=== PATIENT | female | born 1945 | race Caucasian/White ===

== ENCOUNTER → 2018-05-04 15:34 | Outpatient (REF) | payer MEDICARE, BC, SELFPAY ==
[2018-05-07 14:04] LABS: Lyme Ab w Rflx to Lyme Confirm Negative
== END ==
LOC: NCHCN 15:34
PROVIDERS: PCP Internal Medicine; Visit Provider Internal Medicine
DX: R53.81 Other malaise (principal)
CPT/HCPCS: 86618

== ENCOUNTER 2018-05-05 10:10 | Emergency (ER) | payer MEDICARE, BC, SELFPAY ==
[2018-05-05] VITALS (33 sets, daily range): BP systolic 117–159; BP diastolic 49–132; PULSE 64–147; RESP 9–23; TEMP 36.6; O2SAT 95–100
--- NOTE | 2018-05-05 10:26 | DI.RPTCT_ITS ---
SYMPTOM/DIAGNOSIS: CHEST PAIN, SVT, SOB PE CHEST CT: CT angiography was performed with multi slice acquisition and multi planar and 3D reconstruction. CT scan of the chest was performed according to the pulmonary embolus protocol. Comparison is made with chest xray of 05/05/18. There is no evidence of a pulmonary embolus. The thoracic aorta is intact. No evidence of dissection or aneurysm. Heart size is within normal limits. No significant pericardial effusion is seen. No findings to suggest right ventricular dysfunction are present. No significant mediastinal, hilar or axillary adenopathy is present. No pleural effusion or pneumothorax is identified. Dependent atelectatic changes are seen in the lungs. No focal consolidating infiltrates are seen. The tracheobronchial tree is unremarkable. The bones are intact. No acute findings are seen in the upper abdomen. IMPRESSION: No acute abnormality. No findings of a pulmonary embolus, thoracic aortic dissection or aneurysm. PA AND LATERAL CHEST: No priors. The heart is normal in size. The lungs are clear. The mediastinal structures and pleura appear intact. CONCLUSION: Normal chest.
[2018-05-05] MEDS: Normal Saline 1,000 ML 1000 ML IV (10:30)
--- NOTE | 2018-05-05 10:39 | ED.GENADUL ---
Disposition Clinical Impression: Tachycardia Disposition: HOME Condition: Good Instructions: Supraventricular Tachycardia (ED) Additional Instructions: Please follow-up with your network security engineer in your family doctor soon as possible for reassessment. Please drink 8-10 cups of water per day. If you notice any worsening of your symptoms, or any new symptoms such as vomiting, diarrhea, fever, chills, shortness of breath, chest pain, numbness, weakness, or fainting , please return immediately to the emergency department for reevaluation. Please follow up with your primary care provider as soon as possible for reassessment and reevaluation. As always, it was a pleasure participating in your medical care today. Referrals: Gregory Bowie MD [Primary Care Provider] - Medical Decision Making - Lab Data Laboratory Tests 05/05/18 05/05/18 10:25 10:25 Sodium Cancelled Potassium Cancelled Chloride Cancelled Carbon Dioxide Cancelled Anion Gap Cancelled BUN Cancelled Creatinine Cancelled Estimated GFR/1.73 m2 Cancelled Glucose Cancelled Calcium Cancelled Total Bilirubin Cancelled AST Cancelled ALT Cancelled Alkaline Phosphatase Cancelled Total Protein Cancelled Albumin Cancelled Free T4 Cancelled - Medical Decision Making This is a pleasant 72-year-old female who presents for evaluation of chest pain and palpitations. Began at 5 AM, and has continued until about 9:30 AM roughly 30-45 minutes prior to arrival. Chest pain resolved at that time but the palpitations continued. Patient denies any history of cardiac disease or significant arrhythmia. She does not take any cardiac medication. Here in the emergency department the patient appeared stable, demonstrated a normal blood pressure but was notably tachycardic in the high 140s-150s. EKG shows evidence of notable tachycardia, slightly difficult to differentiate between a flutter and SVT. Valsalva was performed twice on the patient with no significant improvement, however not long after this the patient spontaneously returned to normal sinus rhythm per EKG, with no cardiac medication being given. Will hold on the Cardizem for the time being. We will evaluate for any electrolyte abnormality, order a d-dimer for evaluation of PE as the causative agent of her symptoms, rehydrate and reassess. EK:15 AM Rate 147, MD uncertain, QTc 42, QRS 110, atrial flutter versus SVT. No significant ST elevations or depressions. No significant Q waves. EKG 10:39 AM Rate 84, sinus rhythm, intervals normal, no ST elevations or depressions no T-wave inversions questionable Q-wave in lead III with associated T-wave inversion. No other abnormalities. 1:[address] angiogram has resulted and shows no evidence of pulmonary embolism, or any acute pathology. No evidence of pneumonia or other issue. Patient's laboratory workup has returned benign. Troponin, EKGs are normal. No significant electrolyte abnormalities. The patient has maintained an observation period here in the emergency department of nearly 4 hours, and continues to show no evidence of SVT or atrial flutter. She has received no medications, she has not received any of the Cardizem that was ordered secondary to a spontaneous return to normal rhythm. We are still pending a second troponin repeat EKG, however I do feel that the patient is stable for discharge home with close follow-up with cardiology. We will orchestrate a cardiology follow-up. We had a long discussion regarding red flags which to return including return of her symptoms and the patient understands. EKG 1340PM Rate 68, intervals normal, no ST elevations or depressions. No T-wave inversions except for in lead III. No signs of significant dysrhythmia, atrial fibrillation or a flutter. History of Present Illness - General Chief complaint: Chest Pain Stated complaint: CHEST PAIN Time Seen by Provider: 05/05/18 10:24 - History of Present Illness Initial comments: This is a 72-year-old female with past medical history of diabetes, high cholesterol, tobacco use which she stopped in 1978, as well as chronic UTIs for which she takes regular nitrofurantoin for the last year. She presents today complaining of palpitations that started at 5 AM when she awoke. She felt an irregular sensation in her chest, as well as some associated chest tightness, shortness of breath, and left arm pain. There were no aggravating components or relieving components. Patient's symptoms were continuous until 9:30 PM prior to arrival at which point palpitations maintain however the chest pain shortness of breath resolved. Currently the patient denies any chest, arm, or neck pain. She does admit to mild palpitations, and some shortness of breath. She denies having symptoms like this recently but does admit to a history of having some palpitations in the past. She does not regularly see a network security engineer. She does have cerebral artery disease. Patient's past surgical history is positive for cholecystectomy and appendectomy. She denies any IV or illicit drug use. She is denies any pertinent family history. She has no other complaints at this time. - Related Data Aspirin/Calcium Carbonate/Mag [Aspirin Buffered 325 mg Tab] 325 mg PO DAILY 07/10/14 Simvastatin 40 mg PO QPM 10/18/14 Nitrofurantoin Monohyd/M-Cryst [Macrobid 100 mg Capsule] 100 mg PO BID #14 capsule 12/11/15 Omeprazole [PriLOSEC Otc] 20 mg PO DAILY 08/13/16 Allergies Allergy/AdvReac Type Severity Reaction Status Date / Time Sulfa (Sulfonamide Allergy Severe Cardiac Verified 05/05/18 10:33 Antibiotics) Dysrythmia Schafer Allergy Intermediate throat itch Verified 05/05/18 10:33 peach Allergy Intermediate throat and Verified 05/05/18 10:33 eye itch amoxicillin trihydrate Allergy Mild Skin Rash Verified 05/05/18 10:33 [From Augmentin] clopidogrel bisulfate Allergy Mild Hives Verified 05/05/18 10:33 [From Plavix] erythromycin base Allergy Mild Skin Rash Verified 05/05/18 10:33 [Erythromycin Base] potassium clavulanate Allergy Mild Skin Rash Verified 05/05/18 10:33 [From Augmentin] nectarines Allergy Mild throat and Uncoded 05/05/18 10:33 eye itch nuts Allergy Mild throat and Uncoded 05/05/18 10:33 eye itch Review of Systems Other: 10 point review of systems was performed, pertinent positives and negatives are noted in the history of present illness. Past Medical History - Past Medical History Medical history: CAD, diabetes, hyperlipidemia Surgical history: appendectomy, cholecystectomy, other (tonsillectomy, lithotripsy) General Exam - Other Other exam information: 1.Const: Well-nourished, Well-developed, appearing stated age 2.Eyes: PERRL, no conjunctival injection, and symmetrical lids. 3.ENT: Atraumatic external nose and ears. Mildly dry MM. Neck: Symmetric, trachea midline, No thyromegaly. 4.CVS: +S1/S2, No murmurs or gallops. Peripheral pulses 2+ and equal in all extremities. Brisk capillary refill in all extremities. No reproducible chest pain or tenderness. 5.RESP: Unlabored respiratory effort. Clear to auscultation bilaterally. No wheezes rales or rhonchi 6.GI: Soft, Nontender/Nondistended, No hepatosplenomegaly. No guarding or rebound. 7.MSK: Normocephalic/Atraumatic, Extremities w/o deformity or ttp No cyanosis or clubbing, Normal movement of all extremities 8.Skin: Warm, Dry. No rashes or lesions. 9.Neuro: mental health case manager II-XII grossly intact. Sensation grossly intact, no focal neurologic deficits. 10.Psych: (AAO) x3. Appropriate mood and affect Course Vital Signs - 24 hr 05/05/18 10:15 Temperature 36.6 C Pulse 145 H Respiratory 17 Rate Blood Pressure 159/93 Pulse Oximetry 98
[2018-05-05 10:40] LABS: Abs Immature Grans 0.01 k/cumm (0.0-0.09); Absolute Basophil Count 0.02 k/cumm (0.0-0.2); Absolute Lymphocyte Count 2.24 k/cumm (1.2-3.4); Absolute Monocyte Count 0.53 k/cumm (0.11-0.7); Absolute Neutrophil Count 5.37 k/cumm (1.2-6.7); Basophils % 0.2; Eosinophils % 1.2; HCT 47.8 % (36.0-46.0); HGB 16.9 g/dL (12.0-15.5); Immature Grans % 0.1; Lymphocytes % 27.1; Mean Corp. HGB Concentration 35.4 g/dL (32.0-36.0); Mean Corpuscular Hemoglobin 31.5 pg (27.0-33.0); Mean Platelet Volume 9.7 fL (8.0-11.0); Monocytes % 6.4; Platelet Count 201 x1000/uL (130-400); RBC 5.37 m/cumm (4.00-5.20); RBC Distribution Width 12.9 % (11.7-14.6); White Blood Cell Count 8.27 k/cumm (4.4-10.8)
--- NOTE | 2018-05-05 10:45 | ED.GENADUL_ITS ---
Disposition Clinical Impression: Tachycardia Disposition: HOME Condition: Good Instructions: Supraventricular Tachycardia (ED) Additional Instructions: Please follow-up with your barrel tester in your family doctor soon as possible for reassessment. Please drink 8-10 cups of water per day. If you notice any worsening of your symptoms, or any new symptoms such as vomiting, diarrhea, fever, chills, shortness of breath, chest pain, numbness, weakness, or fainting , please return immediately to the emergency department for reevaluation. Please follow up with your primary care provider as soon as possible for reassessment and reevaluation. As always, it was a pleasure participating in your medical care today. Referrals: Gregory Bowie MD [Primary Care Provider] - Medical Decision Making - Lab Data Laboratory Tests 05/05/18 05/05/18 10:25 10:25 Sodium Cancelled Potassium Cancelled Chloride Cancelled Carbon Dioxide Cancelled Anion Gap Cancelled BUN Cancelled Creatinine Cancelled Estimated GFR/1.73 m2 Cancelled Glucose Cancelled Calcium Cancelled Total Bilirubin Cancelled AST Cancelled ALT Cancelled Alkaline Phosphatase Cancelled Total Protein Cancelled Albumin Cancelled Free T4 Cancelled - Medical Decision Making This is a pleasant 72-year-old female who presents for evaluation of chest pain and palpitations. Began at 5 AM, and has continued until about 9:30 AM roughly 30-45 minutes prior to arrival. Chest pain resolved at that time but the palpitations continued. Patient denies any history of cardiac disease or significant arrhythmia. She does not take any cardiac medication. Here in the emergency department the patient appeared stable, demonstrated a normal blood pressure but was notably tachycardic in the high 140s-150s. EKG shows evidence of notable tachycardia, slightly difficult to differentiate between a flutter and SVT. Valsalva was performed twice on the patient with no significant improvement, however not long after this the patient spontaneously returned to normal sinus rhythm per EKG, with no cardiac medication being given. Will hold on the Cardizem for the time being. We will evaluate for any electrolyte abnormality, order a d-dimer for evaluation of PE as the causative agent of her symptoms, rehydrate and reassess. EK:15 AM Rate 147, PA uncertain, QTc 42, QRS 110, atrial flutter versus SVT. No significant ST elevations or depressions. No significant Q waves. EKG 10:39 AM Rate 84, sinus rhythm, intervals normal, no ST elevations or depressions no T- wave inversions questionable Q-wave in lead III with associated T-wave inversion. No other abnormalities. 1:[address] angiogram has resulted and shows no evidence of pulmonary embolism, or any acute pathology. No evidence of pneumonia or other issue. Patient's laboratory workup has returned benign. Troponin, EKGs are normal. No significant electrolyte abnormalities. The patient has maintained an observation period here in the emergency department of nearly 4 hours, and continues to show no evidence of SVT or atrial flutter. She has received no medications, she has not received any of the Cardizem that was ordered secondary to a spontaneous return to normal rhythm. We are still pending a second troponin repeat EKG, however I do feel that the patient is stable for discharge home with close follow-up with cardiology. We will orchestrate a cardiology follow-up. We had a long discussion regarding red flags which to return including return of her symptoms and the patient understands. EKG 1340PM Rate 68, intervals normal, no ST elevations or depressions. No T-wave inversions except for in lead III. No signs of significant dysrhythmia, atrial fibrillation or a flutter. History of Present Illness - General Chief complaint: Chest Pain Stated complaint: CHEST PAIN Time Seen by Provider: 05/05/18 10:24 - History of Present Illness Initial comments: This is a 72-year-old female with past medical history of diabetes, high cholesterol, tobacco use which she stopped in 1978, as well as chronic UTIs for which she takes regular nitrofurantoin for the last year. She presents today complaining of palpitations that started at 5 AM when she awoke. She felt an irregular sensation in her chest, as well as some associated chest tightness, shortness of breath, and left arm pain. There were no aggravating components or relieving components. Patient's symptoms were continuous until 9:30 PM prior to arrival at which point palpitations maintain however the chest pain shortness of breath resolved. Currently the patient denies any chest, arm, or neck pain. She does admit to mild palpitations, and some shortness of breath. She denies having symptoms like this recently but does admit to a history of having some palpitations in the past. She does not regularly see a barrel tester. She does have cerebral artery disease. Patient' s past surgical history is positive for cholecystectomy and appendectomy. She denies any IV or illicit drug use. She is denies any pertinent family history. She has no other complaints at this time. - Related Data Aspirin/Calcium Carbonate/Mag [Aspirin Buffered 325 mg Tab] 325 mg PO DAILY Simvastatin 40 mg PO QPM 10/18/14 Nitrofurantoin Monohyd/M-Cryst [Macrobid 100 mg Capsule] 100 mg PO BID #14 capsule 12/11/15 Omeprazole [PriLOSEC Otc] 20 mg PO DAILY 08/13/16 Allergies Allergy/AdvReac Type Severity Reaction Status Date / Time Sulfa (Sulfonamide Allergy Severe Cardiac Verified 05/05/18 10:33 Antibiotics) Dysrythmia Schafer Allergy Intermediate throat itch Verified 05/05/18 10:33 peach Allergy Intermediate throat and Verified 05/05/18 10:33 eye itch amoxicillin trihydrate Allergy Mild Skin Rash Verified 05/05/18 10:33 [From Augmentin] clopidogrel bisulfate Allergy Mild Hives Verified 05/05/18 10:33 [From Plavix] erythromycin base Allergy Mild Skin Rash Verified 05/05/18 10:33 [Erythromycin Base] potassium clavulanate Allergy Mild Skin Rash Verified 05/05/18 10:33 [From Augmentin] nectarines Allergy Mild throat and Uncoded 05/05/18 10:33 eye itch nuts Allergy Mild throat and Uncoded 05/05/18 10:33 eye itch Review of Systems Other: 10 point review of systems was performed, pertinent positives and negatives are noted in the history of present illness. Past Medical History - Past Medical History Medical history: CAD, diabetes, hyperlipidemia Surgical history: appendectomy, cholecystectomy, other (tonsillectomy, lithotripsy) General Exam - Other Other exam information: 1.Const: Well-nourished, Well-developed, appearing stated age 2.Eyes: PERRL, no conjunctival injection, and symmetrical lids. 3.ENT: Atraumatic external nose and ears. Mildly dry MM. Neck: Symmetric, trachea midline, No thyromegaly. 4.CVS: +S1/S2, No murmurs or gallops. Peripheral pulses 2+ and equal in all extremities. Brisk capillary refill in all extremities. No reproducible chest pain or tenderness. 5.RESP: Unlabored respiratory effort. Clear to auscultation bilaterally. No wheezes rales or rhonchi 6.GI: Soft, Nontender/Nondistended, No hepatosplenomegaly. No guarding or rebound. 7.MSK: Normocephalic/Atraumatic, Extremities w/o deformity or ttp No cyanosis or clubbing, Normal movement of all extremities 8.Skin: Warm, Dry. No rashes or lesions. 9.Neuro: nurse anesthesia program director II-XII grossly intact. Sensation grossly intact, no focal neurologic deficits. 10.Psych: (AAO) x3. Appropriate mood and affect Course Vital Signs - 24 hr 05/05/18 10:15 Temperature 36.6 C Pulse 145 H Respiratory 17 Rate Blood Pressure 159/93 Pulse Oximetry 98
[2018-05-05 11:04] LABS: ALT 33 U/L (12-78); AST 21 U/L (15-37); Albumin 4.1 g/dL (3.4-5.0); Alkaline Phosphatase 111 U/L (46-116); Anion Gap 6.9 mmol/L (3-11); BUN 15 mg/dL (7-18); Bilirubin, Total 0.7 mg/dL (0.2-1.0); CO2 26.1 mmol/L (21.0-32.0); CREATININE 0.81 mg/dL (0.55-1.02); Calcium 9.7 mg/dL (8.5-10.1); Chloride 107 mmol/L (98-107); FREE T4 1.02 ng/dL (0.76-1.46); Glucose 142 mg/dL (70-100); Magnesium 1.8 mg/dL (1.8-2.4); Potassium 3.9 mmol/L (3.5-5.1); Sodium 140 mmol/L (136-145); TSH 1.21 uIU/mL (0.358-3.74); Total Protein 7.1 g/dL (6.4-8.2); Troponin I < 0.02 ng/mL (0.00-0.06)
[2018-05-05 11:08] LABS: Bilirubin Negative (Negative); Blood Negative (Negative); Clarity Clear; Glucose Negative (Negative); Ketones Negative (Negative); Leukocyte Esterase Negative (Negative); Nitrite Negative (Negative); Urobilinogen 0.2 EU/dL (Up TO 0.2); pH 5.5 (5-8)
[2018-05-05 11:09] LABS: D-Dimer 519 ng/mlFEU (<500)
--- NOTE | 2018-05-05 11:47 | DI.VRAD_ITS ---
EXAM: XR Chest, 2 Views CLINICAL HISTORY: 72 years old, female; Signs and symptoms; Other: Chest pain TECHNIQUE: Frontal and lateral views of the chest. COMPARISON: CR - CHEST 2 VIEWS PA,LAT 06/30/2011 1:28 PM FINDINGS: The lung fountain are clear bilaterally. No focal pulmonary consolidation is present. The cardiac silhouette is within normal limits. The costophrenic angles are sharp. The bony structures appear unremarkable. IMPRESSION: No evidence of acute cardiopulmonary disease. Dictated and Authenticated by: Stephane Ngo MD. Ordering:NIK TINEO MD
[2018-05-05] MEDS: Omnipaque 350 MG/ML 100 ML BTL IJ (11:51)
--- NOTE | 2018-05-05 11:55 | DI.VRAD_ITS ---
EXAM: CT Angiography Chest With Intravenous Contrast CLINICAL HISTORY: 72 years old, female; Signs and symptoms; Other: Svt, SOB, cp TECHNIQUE: Axial computed tomographic angiography images of the chest with intravenous contrast using pulmonary embolism protocol. All CT scans at this facility use at least one of these dose optimization techniques: automated exposure control; mA and/or kV adjustment per patient size (includes targeted exams where dose is matched to clinical indication); or iterative reconstruction. MIP reconstructed images were created and reviewed. Coronal and sagittal reformatted images were created and reviewed. COMPARISON: CR - CHEST 2 VIEWS PA,LAT 05/05/2018 11:02 AM FINDINGS: No evidence of PE. Mild diffuse interstitial lung scarring and basilar atelectasis. No other significant consolidations. No pleural effusion. No pneumothorax. No adenopathy. Unremarkable upper abdomen. No acute mediastinal or aortic abnormality. IMPRESSION: No specific etiology identified for the patient's symptoms. Dictated and Authenticated by: Stephane Ngo MD. Ordering:NIK TINEO MD
[2018-05-05 12:19] LABS: Troponin I < 0.02 ng/mL (0.00-0.06)
[2018-05-05 13:44] LABS: Troponin I < 0.02 ng/mL (0.00-0.06)
--- NOTE | 2018-05-07 10:00 | PDOC.ERCMPRO ---
Care Management Progress Note 05/07-Dr. Clinton requested assistance with a Cardiology f/u within two weeks for SVT vs Aflutter. referral faxed to cardiology this am.
== END 2018-05-05 14:30 | disposition home or self-care (01) ==
PROVIDERS: Emergency Provider Student in an Organized Health Care Education/Training Program; PCP Internal Medicine
DX: R00.0 Tachycardia, unspecified (principal); R79.1 Abnormal coagulation profile; E11.9 Type 2 diabetes mellitus without complications
CPT/HCPCS: 71046; 71275; 93005; 96360; 99285 ×2; 36415; 80053; 81003; 83735; 84439; 84443; 84484; 85025; 85379; 93010; J3490

== ENCOUNTER 2019-08-05 12:41 | Outpatient (REF) | payer MEDICARE, BC, SELFPAY ==
[2019-08-05 22:15] LABS: Calculated LDL 95 mg/dL; Cholesterol 185 mg/dL (<200); HDL Cholesterol 51 mg/dL (40-60); Triglyceride 196 mg/dL (<150)
== END 2019-08-05 13:01 ==
LOC: NCHCN 12:41
PROVIDERS: PCP Internal Medicine; Visit Provider Internal Medicine
DX: E78.5 Hyperlipidemia, unspecified (principal)
CPT/HCPCS: 80061

== ENCOUNTER 2019-09-12 01:57 | Outpatient (CLI) | payer MEDICARE, BC, SELFPAY ==
--- NOTE | 2019-09-12 15:55 | DI.MAMMO_ITS ---
EXAM: MAMMO SCREENING CLINICAL HISTORY: SCREENING Z12.39 TECHNIQUE: Mammograms were interpreted according to the usual protocol including computer analysis w [employer] CAD system, tomosynthesis and C-view imaging. FINDINGS: The breasts are heterogeneously dense with numerous bilateral areas of nodularity and asymmetric dens ity, the appearance of the breasts limits interpretation. No dominant mass seen. Multiple benign du ctal calcifications seen bilaterally. No gross interval change in appearance in comparison with prio r studies including April 2017. IMPRESSION: No specific evidence of malignancy at this time. Routine screening examinations are suggested at year ly intervals in this age group and would be particularly recommended in this patient due to the heter ogeneous radiodensity of the breasts. Category 1. Breast density, category C. BI-RADS Cat 1 - Negative. Breast Density - Category C - Heterogeneously dense.
== END 2019-09-12 02:17 ==
PROVIDERS: PCP Internal Medicine; Visit Provider Internal Medicine
DX: Z12.31 Encounter for screening mammogram for malignant neoplasm of breast (principal); N60.81 Other benign mammary dysplasias of right breast; N60.82 Other benign mammary dysplasias of left breast
CPT/HCPCS: 77063; 77067

== ENCOUNTER 2020-03-29 13:17 | Observation (INO) | payer MEDICARE, BC, SELFPAY ==
[2020-03-29] VITALS (56 sets, daily range): BP systolic 93–180; BP diastolic 54–108; PULSE 65–149; RESP 9–29; TEMP 36.6–37.1; O2SAT 93–98
--- NOTE | 2020-03-29 13:15 | RT.EKG_ITS ---
APPROVED REPORT Exam: Resting ECG Patient Location: E HR:139 bpm ECG Measurements Heart Rate 139 AXIS ND 119 P 129 QRSd 80 QRS -31 QT 320 T 51 QTc 487 <Conclusion> tachycardia...rate> 99 Left axis deviation...QRS axis (-30,-90) aflutter
[2020-03-29 13:43] LABS: Abs Immature Grans 0.01 k/cumm (0.0-0.09); Absolute Basophil Count 0.02 k/cumm (0.0-0.2); Absolute Eosinophil Count 0.25 k/cumm (0.0-0.7); Absolute Lymphocyte Count 2.28 k/cumm (1.2-3.4); Absolute Monocyte Count 0.56 k/cumm (0.11-0.7); Absolute Neutrophil Count 4.89 k/cumm (1.2-6.7); Basophils % 0.2; Eosinophils % 3.1; HCT 44.9 % (36.0-46.0); HGB 15.8 g/dL (12.0-15.5); Immature Grans % 0.1 %; Lymphocytes % 28.5; Mean Corp. HGB Concentration 35.2 g/dL (32.0-36.0); Mean Corpuscular Hemoglobin 30.8 pg (27.0-33.0); Mean Corpuscular Volume 87.5 fL (80-95); Mean Platelet Volume 9.5 fL (8.0-11.0); Neutrophils % 61.1; Platelet Count 225 x1000/uL (130-400); RBC 5.13 m/cumm (4.00-5.20); RBC Distribution Width 13.1 % (11.7-14.6); White Blood Cell Count 8.01 k/cumm (4.4-10.8)
[2020-03-29] MEDS: dilTIAZem 25 MG/5 ML VIAL 10 MG IVP ×2 (13:46→14:15)
[2020-03-29] MEDS: Normal Saline 1,000 ML 1000 ML IV (13:50)
--- NOTE | 2020-03-29 13:50 | W.ED.GENAD ---
Discharge Plan Disposition Patient Disposition: OTHER Condition: Good Discharge Details Chief Complaint: Palpitatns Clinical Impression: Atrial fibrillation with RVR Admit Date/Time: 03/29/20 15:04 Admit Provider: Karina Bragg Attending Provider: Karina Bragg Primary Care Provider: Gregory Bowie ED Provider: Marcel Sandhu Hospital Course Hospital Course: Ms Britt is a 74 year old female with PMHx of paroxysmal Afib, on prn propranolol but not on anticoagulation, h/o incidentally found left middle cerebral artery calcifications without ever having had TIAs or CVA, on full dose aspirin daily, as well as dyslipidemia, GERD, and recurrent UTIs on chronic nitrofurantoin therapy, who usually treats her monthly bouts of Afib with valsalva maneuver, who had an episode of atrial fibrillation that started at around noon today while working outside, loading up her truck. She denies feeling dizzy, having chest pain, or nausea. She felt a brief pain radiating down both her hands as well as brief shortness of breath once she got to the ED. She attempted her valsalva maneuver, unsuccessfully, then took her propranolol, which also did not slow her down, so she drove herself to the ED, where her heart rates were found to be in 140s. She received 2 pushes of IV diltiazem and was initiated on diltiazem gtt. When she was having her routine screening COVID-19 swab done, she converted to NSR and feels well. She has an appointment with her elevator runner, Dr Godfrey at [facility], tomorrow and is interested in following up with him. She would like to go home. She is hemodynamically stable. She does not have cell phone service at home, so she cannot have a 30 day cardiac event recorder, but she will be sent out with holter monitor today, assuming her repeat troponin is negative. Ms Britt is not sure when her echocardiogram was, but thinks she has had one in the past. Given her alcohol intake of 3 glasses of wine at night, an updated echo is recommended. Additionally, a sleep study could also be pursued as outpatient. She will talk to Dr Godfrey about anticoagulation. She is mediclaly stable for discharge home today. Discharge Data Discharge Date/Time-TO BE ENTERED AT DEPARTURE: 03/29/20 15:39 Medical Decision Making <MERRY Timmons - Last Filed: 03/29/20 15:26> 74-year-old female with a history of hyperlipidemia, GERD, palpitations, presents to the ER reporting palpitations and a fast heart rate that began roughly 1 hour ago when working outside in her yard. She denies any chest pain or shortness of breath. She reports this does feel rather similar to her previous evaluation. I was able to quickly review her previous record, it appears as though she was in A. fib-flutter, they attempted a Valsalva move with no improvement, and then prior to Cardizem being given her rhythm spontaneously broke. Subsequently since that time she has established cardiology care and does have propranolol as needed that she does not regularly take, did take 1 dose today. She denies any pain or swelling in her legs. No history of DVT or PE. IV access established, will give 1 L IV fluid, and attempt Valsalva maneuver. In the meantime will initiate cardiac work-up. Given low suspicion for PE, will not order d-dimer. I did discuss the case with Dr. Mancia Valsalva maneuver performed twice without change of therapy. An IV Cardizem given. Heart rate went from the 140s down into the 120s and 130s. A second dose of IV Cardizem, 10 mg given. Heart rate decreased initially into the 90s, remained in A. fib. Subsequently climbed back into the 120s. Initiated a Cardizem drip, starting at 5. Heart rate is now in the 110s Initial work-up here in the ER reveals a WBC of 8.01 hemoglobin 15.8 hematocrit 44.9 platelet count 225. Electrolytes unremarkable. Creatinine 0.94 with a GFR of 58.21. Glucose of 200. Calcium 10.2. TSH 1.28. Troponin less than 0.05. Chest x-ray clear. Upon reevaluation heart rate of 108. Patient reports significant improvement of her symptoms. While I was in the room, her rate did go back up to 125. Patient appears well, hemodynamically stable at this point. Will contact our hospitalist team for admission to the ICU with Cardizem drip, diagnosis A. fib with RVR. Repeat EKG was performed at 1429, please see Dr. Mancia's official report. Atrial fibrillation, ventricular of 110. No STEMI. Medical Records Medical records reviewed: Yes I reviewed the patient's medical records. Imaging Data Radiologic Study: Attestation: I personally reviewed and interpreted this imaging study as follows: Imaging: X-Ray Radiologist's impression: Chest x-ray negative Lab Data Lab results reviewed: Yes I reviewed the patient's lab results. Lab results narrative: Laboratory Tests Range/Units 03/29/20 03/29/20 03/29/20 13:28 13:28 13:28 WBC (4.4-10.8) k/cumm 8.01 RBC (4.00-5.20) m/cumm 5.13 Hgb (12.0-15.5) g/dL 15.8 H Hct (36.0-46.0) % 44.9 MCV (80-95) fL 87.5 MCH (27.0-33.0) pg 30.8 MCHC (32.0-36.0) g/dL 35.2 RDW (11.7-14.6) % 13.1 Plt Count (130-400) x1000/uL 225 MPV (8.0-11.0) fL 9.5 Immature Gran % % 0.1 Neutrophils % 61.1 Lymphocytes % 28.5 Monocytes % 7.0 Eosinophils % 3.1 Basophils % 0.2 Absolute Neutrophils (1.2-6.7) k/cumm 4.89 Absolute Lymphocytes (1.2-3.4) k/cumm 2.28 Absolute Monocytes (0.11-0.7) k/cumm 0.56 Absolute Eosinophils (0.0-0.7) k/cumm 0.25 Absolute Basophils (0.0-0.2) k/cumm 0.02 PT (9.3-11.0) sec 9.9 INR (0.9-1.1) 1.0 APTT (21.0-31.4) sec 22.7 Sodium (136-145) mmol/L 140 Potassium (3.5-5.1) mmol/L 3.8 Chloride (98-107) mmol/L 104 Carbon Dioxide (21.0-32.0) mmol/L 25.0 Anion Gap (3-11) mmol/L 11.0 BUN (7-18) mg/dL 23 H Creatinine (0.55-1.02) mg/dL 0.94 Estimated GFR/1.73 m2 (mL/min/1.73m2) 58.21 Glucose (74-106) mg/dL 200 H Calcium (8.5-10.1) mg/dL 10.2 H Magnesium (1.8-2.4) mg/dL 2.0 Total Bilirubin (0.2-1.0) mg/dL 0.8 AST (15-37) U/L 23 ALT (14-59) U/L 31 Alkaline Phosphatase (46-116) U/L 114 Troponin I (<0.06) ng/mL < 0.05 Total Protein (6.4-8.2) g/dL 7.3 Albumin (3.4-5.0) g/dL 4.0 TSH (0.36-3.74) uIU/mL 1.28 ECG Data Attestation: I personally reviewed and interpreted this ECG (s) as follows: Prior ECG tracings: available for review Interpretation: EKG reviewed and interpreted with Dr. Mancia. Please see his official report. Sinus tachycardia, ventricular rate of 139. No STEMI. <Kadeem Mancia MD - Last Filed: 04/06/20 17:18> Patient seen, examined, and discussed with MERRY Sandhu. ECG interpreted by me: Concern for a flutter with RVR on initial ECG diltiazem bolus x2 administered and heart rate improved, repeat ECG revealed atrial fibrillation, diltiazem infusion initiated. I agree with treatment plan as discussed/documented. HPI <MERRY Timmons - Last Filed: 03/29/20 15:26> General Mode of arrival: ambulatory. Date/Time Provider Initiated Documentation: 03/29/20 13:17. Limitations to Documentation: no limitations. Information obtained by: patient. HPI Narrative: This is a 74-year-old female with past medical history that includes hyperlipidemia, GERD, palpitations, presents to the ER today reporting that she was working outside in her yard approximately 1 hour ago when she developed palpitations and a rapid heart rate. She denies any chest pain or shortness of breath. She reports that this happened 1 time prior, she was seen in the ER, subsequently discharged after her rhythm went back to normal. She has developed cardiology care in [place], has propanolol as needed, did take a single dose of that today without relief of her symptoms. She denies recent illness or trauma. She denies headache, neck pain, back pain, abdominal pain, nausea, vomiting pain or swelling in her legs, numbness, tingling, weakness in her extremities. Related Data Home Medications Medication Instructions Recorded Confirmed aspirin,buffd-calcium carb-mag 325 mg PO DAILY 07/10/14 03/29/20 nitrofurantoin monohyd/m-cryst 100 mg PO BID #14 capsule 12/11/15 03/29/20 [Macrobid] diltiazem HCl [Cardizem] 30 mg PO BID #60 tab 03/29/20 pravastatin 40 mg PO QHS #30 tab 03/29/20 Previous Rx's Medication Instructions Recorded nitrofurantoin monohyd/m-cryst 100 mg PO BID #14 capsule 12/11/15 [Macrobid] diltiazem HCl [Cardizem] 30 mg PO BID #60 tab 03/29/20 pravastatin 40 mg PO QHS #30 tab 03/29/20 Allergies Allergy/AdvReac Type Severity Reaction Status Date / Time Sulfa (Sulfonamide Allergy Severe Cardiac Verified 03/29/20 15:23 Antibiotics) Dysrythmia Schafer Allergy Intermediate throat itch Verified 03/29/20 15:23 peach Allergy Intermediate throat and Verified 03/29/20 15:23 eye itch amoxicillin trihydrate Allergy Mild Skin Rash Verified 03/29/20 15:23 [From Augmentin] clopidogrel bisulfate Allergy Mild Hives Verified 03/29/20 15:23 [From Plavix] erythromycin base Allergy Mild Skin Rash Verified 03/29/20 15:23 [Erythromycin Base] potassium clavulanate Allergy Mild Skin Rash Verified 03/29/20 15:23 [From Augmentin] nectarines Allergy Mild throat and Uncoded 03/29/20 15:23 eye itch nuts Allergy Mild throat and Uncoded 03/29/20 15:23 eye itch General Stated Complaint: Palpitatns DERIK: 3 Review of Systems <MERRY Timmons - Last Filed: 03/29/20 15:26> Constitutional Constitutional: Denies fatigue, Denies fever(s), Denies headache(s) and Denies weakness ENT Ears, Nose, Mouth, and Throat: Denies headache(s) and Denies neck pain Cardiovascular Cardiovascular: Denies chest pain, Reports palpitations and Denies dyspnea Respiratory Respiratory: Denies cough, Denies dyspnea and Denies wheezing Gastrointestinal Gastrointestinal: Denies abdominal pain, Denies nausea and Denies vomiting Musculoskeletal Musculoskeletal: Denies back pain, Denies neck pain, Denies numbness and Denies tingling Integumentary/Breasts Skin/Breast: Denies rash Neurologic Neurologic: Denies headache(s), Denies numbness, Denies tingling and Denies weakness Endocrine Endocrine: Denies fatigue and Reports palpitations Allergic/Immunologic Allergic/Immunologic: Denies wheezing PFSH <MERRY Timmons - Last Filed: 03/29/20 15:26> Medical History (Updated 03/29/20 @ 17:05 by Karina Bragg MD) Diet-controlled type 2 diabetes mellitus (Chronic) Dyslipidemia (Chronic) GERD (gastroesophageal reflux disease) (Chronic) Paroxysmal A-fib (Acute) Recurrent UTI (Acute) Sigmoid diverticulosis (Acute) Stenosis of left middle cerebral artery (Acute) incidentally found on imaging; no h/o CVA/TIA Surgical History Hx of colonoscopy (Chronic) x5; last one with sigmoid diverticulosis S/P appendectomy (Acute) S/P cholecystectomy (Acute) S/P tonsillectomy (Acute) Family History Paternal Aunt Colon cancer Maternal Uncle Colon cancer Social History Smoking/Tobacco Use Status: Former Tobacco Use Alcohol Intake: current Alcohol Intake frequency: 3 or more drinks per day Alcohol type: wine Counseling given: Yes Counseling provided: reduce to 2 or less/day Drug use: Never Substance use type: does not use Do you feel safe at home: Yes Do you feel safe in your relationship?: Yes Exam <MERRY Timmons - Last Filed: 03/29/20 15:26> Const General: cooperative, healthy appearing, comfortable and no acute distress Orientation: alert, awake and oriented x3 HENMT Head: normal to inspection, normocephalic and atraumatic Mouth: moist mucous membranes Throat: posterior oropharynx normal Eyes Conjunctivae: conjunctivae normal Sclera: sclerae normal Neck Neck: normal visual inspection, full ROM, trachea midline, supple and nontender Resp Effort & Inspection: normal respiratory effort and able to speak in complete sentences Auscultation: clear to auscultation bilaterally Cardio Rate: tachycardic Rhythm: abnormal rhythm irregularly irregular GI Inspection: normal to inspection Palpation: soft and nontender Back/Spine/Pelvis Back: No back tenderness Skin General skin exam: no rashes or lesions noted Neuro General: patient alert, patient awake, patient oriented x3, moves all extremities and no focal motor deficits Cranial Nerves: CN's II-XI intact bilaterally Cognition: normal cognition Speech: speech normal Motor: muscle tone normal throughout Sensory Exam: no sensory deficits noted Extrem General: normal to inspection, full ROM, capillary refill normal, no pedal edema, no calf tenderness and no calf tenderness bilaterally Psych Appearance: grossly normal Mental Status: mental status grossly normal Course <MERRY Timmons - Last Filed: 03/29/20 15:26> Vital Signs Vital signs: Vital Signs Temperature 36.6 C 03/29/20 13:22 Pulse 138 H 03/29/20 13:22 Respiratory Rate 21 03/29/20 13:22 Blood Pressure 180/89 H 03/29/20 13:22 Pulse Oximetry 97 03/29/20 13:22 Temperature 36.6 C 03/29/20 13:22 Temperature Source Temporal Artery Scan 03/29/20 13:22 Pulse 138 H 03/29/20 13:22 Respiratory Rate 21 03/29/20 13:22 Respiratory Effort Non-Labored 03/29/20 13:24 Blood Pressure 180/89 H 03/29/20 13:22 Blood Pressure Position Sitting 03/29/20 13:22 Pulse Oximetry 97 03/29/20 13:22 Oxygen Delivery Method Room Air 03/29/20 13:22 Oxygen Flow Rate 0 03/29/20 13:22 Pain Level 0 03/29/20 13:22 Lab/Test Results Lab/Test Results: Laboratory Tests Range/Units 03/29/20 13:28 WBC (4.4-10.8) k/cumm 8.01 RBC (4.00-5.20) m/cumm 5.13 Hgb (12.0-15.5) g/dL 15.8 H Hct (36.0-46.0) % 44.9 MCV (80-95) fL 87.5 MCH (27.0-33.0) pg 30.8 MCHC (32.0-36.0) g/dL 35.2 RDW (11.7-14.6) % 13.1 Plt Count (130-400) x1000/uL 225 MPV (8.0-11.0) fL 9.5 Immature Gran % % 0.1 Neutrophils % 61.1 Lymphocytes % 28.5 Monocytes % 7.0 Eosinophils % 3.1 Basophils % 0.2 Absolute Neutrophils (1.2-6.7) k/cumm 4.89 Absolute Lymphocytes (1.2-3.4) k/cumm 2.28 Absolute Monocytes (0.11-0.7) k/cumm 0.56 Absolute Eosinophils (0.0-0.7) k/cumm 0.25 Absolute Basophils (0.0-0.2) k/cumm 0.02 Critical Care Time <MERRY Timmons - Last Filed: 03/29/20 15:26> Critical Care Time Critical Care Time: Yes Total Critical Care Time: 45 Attestation: Upon my evaluation, this patient had a high probability of clinically significant, life-threatening deterioration due to their current medical conditions, which required my direct attention, intervention, and personal management. I have personally provided greater than 30 minutes of critical care time exclusive of the time spend on separately billable procedures. Time includes obtaining a history, examining the patient, pulse oximetry, review of laboratory data, radiology results, discussion with consultants, arranging urgent treatment with development of a management plan, evaluation of patient's response to treatment, and monitoring for potential decompensation. Interventions were performed as documented above.
[2020-03-29 13:56] LABS: PTT Activated 22.7 sec (21.0-31.4); Prothrombin Time 9.9 sec (9.3-11.0)
[2020-03-29 14:12] LABS: ALT 31 U/L (14-59); AST 23 U/L (15-37); Alkaline Phosphatase 114 U/L (46-116); BUN 23 mg/dL (7-18); Bilirubin, Total 0.8 mg/dL (0.2-1.0); CREATININE 0.94 mg/dL (0.55-1.02); Calcium 10.2 mg/dL (8.5-10.1); Chloride 104 mmol/L (98-107); Estimated GFR 58.21 (mL/min/1.73m2); Glucose 200 mg/dL (74-106); Potassium 3.8 mmol/L (3.5-5.1); Sodium 140 mmol/L (136-145); TSH 1.28 uIU/mL (0.36-3.74); Total Protein 7.3 g/dL (6.4-8.2)
[2020-03-29 14:13] LABS: Troponin I < 0.05 ng/mL (<0.06)
--- NOTE | 2020-03-29 14:15 | RT.EKG_ITS ---
APPROVED REPORT Exam: Resting ECG Patient Location: E HR:110 bpm ECG Measurements Heart Rate 110 AXIS MO [id number] P [id number] QRSd 82 QRS 33 QT 337 T 18 QTc 457 <Conclusion> Atrial fibrillation Abnormal Electrocardiogram
--- NOTE | 2020-03-29 14:32 | DI.RAD_ITS ---
EXAM: XR PORTABLE CHEST AP CLINICAL HISTORY: Palpitations TECHNIQUE: 2D digital imaging was performed. COMPARISON: CR CHEST 2 VIEWS PA,LAT from 05/05/2018 FINDINGS: MEDIASTINUM: Normal. HEART: Normal. PULMONARY VASCULATURE: Unremarkable. LUNGS: Unchanged left apical scarring. Increased lung markings in the right apex. No focal consolid ating infiltrate. PLEURAL SPACE: No pleural effusion or pneumothorax. BONE:Normal. OTHER FINDINGS:Normal. IMPRESSION: Increased lung markings in the right upper lobe. This may represent atelectasis, scarring or pneumon ia. Please correlate clinically. DATA REPOSITORY: RADIATION DOSE DELIVERED:
[2020-03-29] MEDS: dilTIAZem 125 MG in Normal Saline 100 ML IV (15:00)
--- NOTE | 2020-03-29 15:08 | DI.VRAD_ITS ---
PROCEDURE INFORMATION: Exam: XR Chest, 1 View Exam date and time: 03/29/2020 2:35 PM Age: 74 years old Clinical indication: Other: Palpitations TECHNIQUE: Imaging protocol: XR of the chest Views: 1 view. COMPARISON: CR CHEST 2 VIEWS PA,LAT 05/05/2018 11:02 AM FINDINGS: Lungs: Minimal interstitial lung scarring unchanged. No focal pulmonary consolidation. Pleural space: No pleural effusion. No pneumothorax. Heart/Mediastinum: No significant cardiomegaly. Bones/joints: Unremarkable. IMPRESSION: No definite evidence of acute cardiopulmonary disease. Dictated and Authenticated by: Stephane Ngo MD. Ordering:CAROL Rod MD
--- NOTE | 2020-03-29 16:42 | HPE_ITS ---
Date of service: 03/29/20 Time of Service: 16:42 Assessment and Plan Assessment and plan (1) Atrial fibrillation with RVR: Status: Acute Assessment and plan: Ms Britt has a hx of paroxysmal Afib, which she gets episodes of every month or so, but is usually able to control with valsalva maneuver. Today's episode was the worst so far, and the propranolol she had at home did not help. Diltiazem did help. Assuming that her 2nd troponin is negative, she can be discharged home with diltiazem. Timing of her follow up with her staking engineer is perfect - and Dr Godfrey and her can talk about her options of anticoagulation as well. She is being discharged home with a holter monitor today. Unfortunately, Ms Britt does not remember the timing of her echo. She may be due for an updated one. She does not know if she snores - sleep study could be considered as outpatient as well. For now, continue full dose aspirin as the patient is already taking. (2) Diet-controlled type 2 diabetes mellitus: Status: Chronic Assessment and plan: Patient states her last A1C was 6.7. Continue diet control at home. Decreasing EtOH intake would help. (3) Alcohol abuse: Status: Chronic Assessment and plan: The patient should reduce her alcohol intake. An updated echo as outpatient would give us some idea if alcohol has changed the architecture of her heart contributing to the bouts of Afib. (4) GERD (gastroesophageal reflux disease): Status: Chronic Assessment and plan: Patient is not on a PPI/H2 blockers and this is minimally symptomatic. (5) Dyslipidemia: Status: Chronic Assessment and plan: We will have to change simvastatin to pravastatin given the interaction with cardizem. (6) Discharge planning issues: Status: Acute Assessment and plan: This H&P is also acting as patient's discharge summary due to the short timeframe of patient's observation on the hospitalist service. History of Present Illness History of Present Illness Chief Complaint: Palpitations Narrative: Ms Britt is a 74 year old female with PMHx of paroxysmal Afib, on prn propranolol but not on anticoagulation, h/o incidentally found left middle cerebral artery calcifications without ever having had TIAs or CVA, on full dose aspirin daily, as well as dyslipidemia, GERD, and recurrent UTIs on chronic nitrofurantoin therapy, who usually treats her monthly bouts of Afib with valsalva maneuver, who had an episode of atrial fibrillation that started at a round noon today while working outside, loading up her truck. She denies feeling dizzy, having chest pain, or nausea. She felt a brief pain radiating down both her hands as well as brief shortness of breath once she got to the ED. She attempted her valsalva maneuver, unsuccessfully, then took her propranolol, which also did not slow her down, so she drove herself to the ED, where her heart rates were found to be in 140s. She received 2 pushes of IV diltiazem and was initiated on diltiazem gtt. When she was having her routine screening COVID- 19 swab done, she converted to NSR and feels well. She has an appointment with her staking engineer, Dr Godfrey at [facility], tomorrow and is interested in following up with him. She would like to go home. She is hemodynamically stable. She does not have cell phone service at home, so she cannot have a 30 day cardiac event recorder, but she will be sent out with holter monitor today, assuming her repeat troponin is negative. Ms Britt is not sure when her echocardiogram was, but thinks she has had one in the past. She will talk to Dr Godfrey about anticoagulation. Review of Systems All systems reviewed & are unremarkable except as noted in HPI and below PFSH Medical History Diet-controlled type 2 diabetes mellitus (Acute) Dyslipidemia (Acute) GERD (gastroesophageal reflux disease) (Chronic) Paroxysmal A-fib (Acute) Recurrent UTI (Acute) Sigmoid diverticulosis (Acute) Stenosis of left middle cerebral artery (Acute) incidentally found on imaging; no h/o CVA/TIA Surgical History Hx of colonoscopy (Chronic) x5; last one with sigmoid diverticulosis S/P appendectomy (Acute) S/P cholecystectomy (Acute) S/P tonsillectomy (Acute) Family History Paternal Aunt Colon cancer Maternal Uncle Colon cancer Social History Smoking/Tobacco Use Status: Former Tobacco Use Alcohol Intake: current Alcohol Intake frequency: 3 or more drinks per day Alcohol type: wine Counseling given: Yes Counseling provided: reduce to 2 or less/day Drug use: Never Substance use type: does not use Do you feel safe at home: Yes Do you feel safe in your relationship?: Yes Meds Home Medications and Allergies Home Medications Medication Instructions Recorded Confirmed Type aspirin,buffd-calcium carb-mag 325 mg PO DAILY 07/10/14 03/29/20 History simvastatin 40 mg PO QPM 10/18/14 03/29/20 History nitrofurantoin monohyd/m-cryst 100 mg PO BID #14 capsule 12/11/15 03/29/20 Rx [Macrobid] propranolol 10 mg PO DAILY PRN 03/29/20 03/29/20 History Allergies Allergy/AdvReac Type Severity Reaction Status Date / Time Sulfa (Sulfonamide Allergy Severe Cardiac Verified 03/29/20 15:23 Antibiotics) Dysrythmia Schafer Allergy Intermediate throat itch Verified 03/29/20 15:23 peach Allergy Intermediate throat and Verified 03/29/20 15:23 eye itch amoxicillin trihydrate Allergy Mild Skin Rash Verified 03/29/20 15:23 [From Augmentin] clopidogrel bisulfate Allergy Mild Hives Verified 03/29/20 15:23 [From Plavix] erythromycin base Allergy Mild Skin Rash Verified 03/29/20 15:23 [Erythromycin Base] potassium clavulanate Allergy Mild Skin Rash Verified 03/29/20 15:23 [From Augmentin] nectarines Allergy Mild throat and Uncoded 03/29/20 15:23 eye itch nuts Allergy Mild throat and Uncoded 03/29/20 15:23 eye itch Exam Narrative Exam Narrative: General: Very pleasant middle-aged female, appears younger than stated age, A&Ox3, laying comfortably in bed Neurological: A&OX3, no focal deficits Psychiatric: appropriate speech pattern/content Skin: visible skin intact except for a tiny blister on the ridge of the nose from a face mask HEENT: Atraumatic, normocephalic, EOMI, MMM, clear oropharynx, no submandibular or cervical lymphadenopathy, no goiter or JVD Cardiovascular: RRR, no m/r/g Lungs: CTAB Gastrointestinal: soft, nontender, nondistended Genitourinary: deferred Extremities: no e/c/c BLE's, she does have dry skin and extremities are cold, +1 pedal pulses B Results Imaging Additional studies: CXR: No definite evidence of acute cardiopulmonary disease. EKG: Afib, HR 110, nonspecific ST-T changes, no acute ischemia Labs Result diagrams: 03/29/20 13:28 03/29/20 13:28 Labs: Laboratory Results - last 24 hr 03/29/20 03/29/20 03/29/20 13:28 13:28 13:28 WBC 8.01 RBC 5.13 Hgb 15.8 H Hct 44.9 MCV 87.5 MCH 30.8 MCHC 35.2 RDW 13.1 Plt Count 225 MPV 9.5 Immature Gran % 0.1 Neutrophils % 61.1 Lymphocytes % 28.5 Monocytes % 7.0 Eosinophils % 3.1 Basophils % 0.2 Absolute Neutrophils 4.89 Absolute Lymphocytes 2.28 Absolute Monocytes 0.56 Absolute Eosinophils 0.25 Absolute Basophils 0.02 PT 9.9 INR 1.0 APTT 22.7 Sodium 140 Potassium 3.8 Chloride 104 Carbon Dioxide 25.0 Anion Gap 11.0 BUN 23 H Creatinine 0.94 Estimated GFR/1.73 m2 58.21 Glucose 200 H Calcium 10.2 H Magnesium 2.0 Total Bilirubin 0.8 AST 23 ALT 31 Alkaline Phosphatase 114 Troponin I < 0.05 Total Protein 7.3 Albumin 4.0 TSH 1.28 Last Vital Signs Temp 37.1 C 03/29/20 16:36 Pulse 79 03/29/20 16:36 Resp 14 03/29/20 16:36 BP 134/54 L 03/29/20 16:36 Pulse Ox 97 03/29/20 16:36 COVID-19 Screening Have you,or household,traveled outside [place] in last 14 days?: No Had IN PERSON contact w/suspected or confirmed C-19 person: No
[2020-03-29 17:11] LABS: Bilirubin Negative (Negative); Blood Negative (Negative); Clarity Clear (Clear); Glucose Negative (Negative); Ketones Negative (Negative); Leukocyte Esterase Negative (Negative); Nitrite Negative (Negative); Urobilinogen 0.2 EU/dL (Up TO 0.2)
[2020-03-29 17:48] LABS: Troponin I < 0.05 ng/mL (<0.06)
[2020-03-29] MEDS: dilTIAZem 30 MG TAB PO (17:59)
[2020-03-31 08:39] LABS: COVID-19 RT-PCR UVMMC Result Negative (Negative)
== END 2020-03-29 18:34 | disposition home or self-care (01) ==
LOC: ER 15:22 → ICU 16:04
PROVIDERS: Admitting Provider Internal Medicine; Emergency Provider Physician Assistant; PCP Internal Medicine; Visit Provider Internal Medicine
DX: I48.0 Paroxysmal atrial fibrillation (principal); Z11.59 Encounter for screening for other viral diseases; E11.9 Type 2 diabetes mellitus without complications; F10.10 Alcohol abuse, uncomplicated; K21.9 Gastro-esophageal reflux disease without esophagitis; E78.5 Hyperlipidemia, unspecified; Z79.899 Other long term (current) drug therapy; Z79.82 Long term (current) use of aspirin
CPT/HCPCS: 36415; 80053; 93005; 96361; 96365; 96375; 96376; 99220; 99291; U0003; 71045; 81003; 83735; 84443; 84484; 85025; 85610; 85730; 87086; 93010; 93225; G0378

== ENCOUNTER 2020-04-01 09:25 | Outpatient (CLI) | payer MEDICARE, BC, SELFPAY ==
--- NOTE | 2020-04-02 08:52 | W.HOLTRPT ---
Date of service: 04/02/20 Time of Service: 08:53 Holter Monitor Report Referring Provider:: Mahsa Indications:: Rapid atrial fibrillation Holter Monitor Note: This is a 48-hour Holter monitor ordered for indication of rapid atrial fibrillation. ?The patient was normal sinus rhythm for the Jorde recording. ?There were no episodes of supraventricular tachycardia or ventricular tachycardia. ?There were 4 total PVCs. ?There were no episodes of atrial fibrillation, no pauses grade 3 seconds and no evidence of high degree heart block. ?There were no patient triggered events.
== END 2020-04-01 09:45 ==
PROVIDERS: PCP Internal Medicine; Visit Provider Internal Medicine
DX: I48.91 Unspecified atrial fibrillation (principal); I49.3 Ventricular premature depolarization
CPT/HCPCS: 93226

== ENCOUNTER 2020-04-02 08:30 | Outpatient (CLI) | payer MEDICARE, BC, SELFPAY | END 2020-04-02 08:50 | PROVIDERS: PCP Internal Medicine; Referring Provider Internal Medicine; Visit Provider Internal Medicine Cardiovascular Disease | DX: I48.91 Unspecified atrial fibrillation (principal); I49.3 Ventricular premature depolarization | CPT/HCPCS: 93227 ==

== ENCOUNTER 2020-04-10 16:32 | Outpatient (REF) | payer MEDICARE, BC, SELFPAY ==
[2020-04-13 15:07] LABS: SARS-CoV-2 RNA Undetected (Undetected); SARS-CoV-2 Specimen Source Nasopharynx
== END 2020-04-10 16:52 ==
LOC: NCHCN 16:32
PROVIDERS: PCP Internal Medicine; Visit Provider Physician Assistant
DX: Z11.59 Encounter for screening for other viral diseases (principal)
CPT/HCPCS: U0003

== ENCOUNTER 2020-04-14 11:16 | Outpatient (REF) | payer MEDICARE, BC, SELFPAY | END 2020-04-14 11:36 | LOC: NCHCN 11:16 | PROVIDERS: PCP Internal Medicine; Visit Provider Physician Assistant | DX: J02.9 Acute pharyngitis, unspecified (principal) | CPT/HCPCS: 87070 ==

== ENCOUNTER 2020-08-12 12:57 | Outpatient (REF) | payer MEDICARE, BC, SELFPAY ==
[2020-08-12 22:15] LABS: HCT 46.8 % (36.0-46.0); HGB 15.6 g/dL (11.2-15.7); MCHC 33.3 % (32.0-36.0); MCV 92.9 fL (80-95); MPV 10.1 fL (8.0-11.0); Platelet Count 207 10^3/uL (130-400); RBC 5.04 10^6/uL (3.93-5.22); RDW 12.6 % (11.7-14.6); RDW-SD 42.6 fL; WBC 7.56 10^3/uL (4.4-10.8)
[2020-08-12 23:15] LABS: Lipase 119 U/L (73-393)
[2020-08-14 10:05] LABS: ALT 54 U/L (14-59); AST 40 U/L (15-37); Alkaline Phosphatase 96 U/L (46-116); Anion Gap 7.7 mmol/L (3-11); BUN 21 mg/dL (7-18); Bilirubin, Total 0.7 mg/dL (0.2-1.0); CO2 26.3 mmol/L (21.0-32.0); CREATININE 1.08 mg/dL (0.55-1.02); Chloride 103 mmol/L (98-107); Estimated GFR 49.46 (mL/min/1.73m2); Glucose 202 mg/dL (74-106); Potassium 4.7 mmol/L (3.5-5.1); Sodium 137 mmol/L (136-145); Total Protein 6.8 g/dL (6.4-8.2)
== END 2020-08-12 13:17 ==
LOC: NCHCN 12:57
PROVIDERS: PCP Internal Medicine; Visit Provider Internal Medicine
DX: I10 Essential (primary) hypertension (principal); E78.5 Hyperlipidemia, unspecified; E11.9 Type 2 diabetes mellitus without complications; I48.0 Paroxysmal atrial fibrillation; R94.5 Abnormal results of liver function studies
CPT/HCPCS: 80053; 83690; 85027

== ENCOUNTER 2020-11-03 01:23 | Outpatient (CLI) | payer MEDICARE, BC, SELFPAY ==
--- NOTE | 2020-11-03 10:25 | DI.RAD_ITS ---
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 TECHNIQUE: 2D digital imaging was performed. COMPARISON: No exams were available for comparison FINDINGS: BONES: No acute fracture is present. No bony destructive lesion is seen. JOINTS: No dislocation present. There is spurring at the AC joint. The glenohumeral joint is well ma intained. SOFT TISSUE: Normal. No tendon or joint space calcifications are seen. IMPRESSION: AC joint degenerative changes. DATA REPOSITORY: RADIATION DOSE DELIVERED:
== END 2020-11-03 01:24 ==
LOC: DI 01:24
PROVIDERS: PCP Internal Medicine; Visit Provider Internal Medicine
DX: M25.511 Pain in right shoulder (principal); M75.101 Unspecified rotator cuff tear or rupture of right shoulder, not specified as traumatic; M19.011 Primary osteoarthritis, right shoulder
CPT/HCPCS: 73030

== ENCOUNTER → 2020-12-01 13:31 | Outpatient (BNVA) | payer MEDICARE, BC, SELFPAY | PROVIDERS: PCP Internal Medicine; Referring Provider Internal Medicine; Visit Provider Student in an Organized Health Care Education/Training Program | DX: M75.01 Adhesive capsulitis of right shoulder (principal); E11.9 Type 2 diabetes mellitus without complications | CPT/HCPCS: 99203; 99213 ==

== ENCOUNTER 2020-12-04 02:36 | Outpatient (CLI) | payer MEDICARE, BC, SELFPAY ==
[2020-12-04 10:16] LABS: Source Nasal/Nares
[2020-12-04 12:34] LABS: COVID-19 PCR Negative (Negative)
== END 2020-12-04 02:37 | disposition home or self-care (01) ==
LOC: LBO 02:36
PROVIDERS: PCP Internal Medicine; Visit Provider Surgery
DX: Z20.822 Contact with and (suspected) exposure to COVID-19 (principal); Z01.818 Encounter for other preprocedural examination
CPT/HCPCS: 87635

== ENCOUNTER 2020-12-29 14:45 | Outpatient (CLI) | payer MEDICARE, BC, SELFPAY | END 2020-12-29 14:46 | PROVIDERS: PCP Internal Medicine; Visit Provider Physician Assistant | DX: M75.01 Adhesive capsulitis of right shoulder (principal) | CPT/HCPCS: 20610; J1040 ==

== ENCOUNTER → 2021-02-02 13:31 | Outpatient (BNVA) | payer MEDICARE, BC, SELFPAY | PROVIDERS: PCP Internal Medicine; Referring Provider Internal Medicine; Visit Provider Student in an Organized Health Care Education/Training Program | DX: M75.01 Adhesive capsulitis of right shoulder (principal); Z98.890 Other specified postprocedural states; E11.69 Type 2 diabetes mellitus with other specified complication | CPT/HCPCS: 99213 ==

== ENCOUNTER 2021-02-22 01:28 | Outpatient (CLI) | payer MEDICARE, BC, SELFPAY ==
--- NOTE | 2021-02-22 13:11 | DI.RAD_ITS ---
Exam(s) XR CHEST 2V PA LATERAL EXAM: XR CHEST 2V PA LATERAL CLINICAL HISTORY: CHEST DISCOMFORT,R07.89,SOB,R06.02,ASSESS FOR PULMONARY FIBROSIS,INTERSTITI. TECHNIQUE: 2D digital imaging was performed. COMPARISON: CR CHEST 2 VIEWS PA,LAT from 06/30/2011 CR CHEST 2 VIEWS PA,LAT from 05/05/2018 CR,XR XR PORTABLE CHEST AP from 03/29/2020 FINDINGS: Heart size is normal. The mediastinum is not widened. There are no confluent infiltrates nor pleural effusions. There is scarring in the left an apex whic h is unchanged and indeed also unchanged from chest x-rays dating back to at least June 2011. Left upper lobe region there is subtle suggestion of a 5 millimeter noncalcified nodule. This is eit her in the left upper lobe or superior segment left lower lobe. No pleural effusions. IMPRESSION: Possible subtle 5 millimeter noncalcified nodular infiltrate in the left lung as described above. Ap propriate follow-up recommended. There are no pleural effusions. DATA REPOSITORY: RADIATION DOSE DELIVERED:
== END 2021-02-22 01:48 ==
PROVIDERS: PCP Internal Medicine; Visit Provider Internal Medicine
DX: R06.02 Shortness of breath (principal); R07.89 Other chest pain
CPT/HCPCS: 71046

== ENCOUNTER 2021-05-12 14:54 | Outpatient (REF) | payer MEDICARE, BC, SELFPAY ==
[2021-05-12 21:37] LABS: Bilirubin Negative (Negative); Blood Large (Negative); Clarity Clear (Clear); Glucose Negative (Negative); Ketones Negative (Negative); Leukocyte Esterase Negative (Negative); Nitrite Negative (Negative); Specific Gravity 1.015 (1.005-1.025); Urobilinogen 0.2 EU/dL (Up TO 0.2); pH 5.5 (5-8)
[2021-05-12 21:38] LABS: Abs Immature Grans 0.03 10^3/uL (0.0-0.06); Absolute Basophil Count 0.04 10^3/uL (0.0-0.2); Absolute Eosinophil Count 1.72 10^3/uL (0.0-0.7); Absolute Monocyte Count 0.46 10^3/uL (0.1-0.8); Absolute Neutrophil Count 4.82 10^3/uL (1.2-6.7); Basophils % 0.4; Eosinophils % 18.2; HCT 45.7 % (36.0-46.0); HGB 15.5 g/dL (11.2-15.7); Immature Grans % 0.3; Lymphocytes % 25.3; MCH 30.9 pg (27.0-33.0); MCHC 33.9 % (32.0-36.0); MPV 9.8 fL (8.0-11.0); Monocytes % 4.9; Neutrophils % 50.9; Nucleated RBC 0 %; Platelet Count 205 10^3/uL (130-400); RBC 5.02 10^6/uL (3.93-5.22); RDW 12.4 % (11.7-14.6); RDW-SD 40.7 fL; WBC 9.47 10^3/uL (4.4-10.8)
[2021-05-12 21:44] LABS: Bacteria Negative HPF (Negative); C & S Indicated? No; Casts Negative LPF (Negative); Crystals Negative HPF (Negative); Epithelial Cells Negative HPF (Negative); Mucus Negative (Negative); WBC Negative HPF (0-5)
[2021-05-12 21:49] LABS: ALT 26 U/L (14-59); AST 23 U/L (15-37); Albumin 3.8 g/dL (3.4-5.0); Alkaline Phosphatase 83 U/L (46-116); Anion Gap 8.4 mmol/L (3-11); BUN 15 mg/dL (7-18); Bilirubin, Total 0.7 mg/dL (0.2-1.0); CO2 27.6 mmol/L (21.0-32.0); CREATININE 0.9 mg/dL (0.55-1.02); Calcium 9.2 mg/dL (8.5-10.1); Chloride 106 mmol/L (98-107); Glucose 113 mg/dL (74-106); Potassium 4.1 mmol/L (3.5-5.1); Sodium 142 mmol/L (136-145); Total Protein 6.6 g/dL (6.4-8.2); Uric Acid 5.6 mg/dL (2.6-6.0)
== END 2021-05-12 14:55 | disposition home or self-care (01) ==
LOC: NCHCN 14:54
PROVIDERS: PCP Internal Medicine; Visit Provider Family Medicine
DX: E11.9 Type 2 diabetes mellitus without complications (principal); R31.0 Gross hematuria; R10.9 Unspecified abdominal pain
CPT/HCPCS: 80053; 81003; 81015; 84550; 85025

== ENCOUNTER 2021-05-14 04:43 | Outpatient (CLI) | payer MEDICARE, BC, SELFPAY ==
--- NOTE | 2021-05-14 | DI.CT_ITS ---
Exam(s) CT ABDOMEN PELVIS WO EXAM: CT ABDOMEN PELVIS WO INDICATION: GROSS HEMATURIA,R31.0,ACUTE ABD PAIN,R10.9. TECHNIQUE: CT examination was performed without contrast administration. FINDINGS: Images obtained through the lung bases show a stable 6 millimeter in diameter left basilar noncalcif ied pulmonary nodule, unchanged from prior CT of May 05, 2018.. The liver contains a well-circums cribed fluid attenuation 17 millimeter in diameter mass in the inferior portion of the left hepatic l obe consistent with cyst. Under remarkable appearance of the liver otherwise. Unremarkable appearan ce of the spleen. Visualized portions of the pancreas are unremarkable. Prior cholecystectomy noted. No biliary dilatation. Abdominal aorta is of normal diameter. No significant abdominal wall hernia. Note is made of mild prominence of mesenteric lymph nodes, the largest nodes measure up to about 14 m illimeters in diameter. No bulky adenopathy seen. Nonspecific finding period. Adrenals appear normal bilaterally. There are multiple bilateral nonobstructing renal calculi. There is an approximately 4 cm in diamete r fluid attenuation mass of midpole of the right kidney. There is no evidence of hydronephrosis, hyd roureter, or ureterolithiasis on either side. Urinary bladder is essentially empty. Appendix appears to been surgically removed. No evidence of diverticulitis or bowel obstruction. Note is made of calcified uterine mass consistent with leiomyoma. IMPRESSION: Bilateral nonobstructing renal calculi are noted. No evidence of acute urinary tract obstruction. RADIATION DOSE DELIVERED: 779.1mGy.cm DLP 779.1mGy.cm Total DLP 16.58mGy CTDIvol RADIATION OPTIMIZATION: All CT scans at this facility use at least one of these dose optimization te chniques: automated exposure control; mA and/or kV adjustment per patient size (includes targeted exa ms where dose is matched to clinical indication); or iterative reconstruction.
== END 2021-05-14 05:03 ==
PROVIDERS: PCP Internal Medicine; Visit Provider Family Medicine
DX: R31.0 Gross hematuria (principal); R10.9 Unspecified abdominal pain; N20.0 Calculus of kidney
CPT/HCPCS: 74176

== ENCOUNTER 2021-05-19 14:55 | Outpatient (REF) | payer MEDICARE, BC, SELFPAY ==
[2021-05-19 22:08] LABS: Bilirubin Negative (Negative); Blood Moderate (Negative); Clarity Clear (Clear); Glucose Negative (Negative); Ketones Negative (Negative); Leukocyte Esterase Negative (Negative); Nitrite Negative (Negative); Urobilinogen 0.2 EU/dL (Up TO 0.2)
[2021-05-19 22:19] LABS: Abs Immature Grans 0.02 10^3/uL (0.0-0.06); Absolute Basophil Count 0.09 10^3/uL (0.0-0.2); Absolute Eosinophil Count 2.27 10^3/uL (0.0-0.7); Absolute Lymphocyte Count 2.34 10^3/uL (1.2-3.4); Absolute Monocyte Count 0.47 10^3/uL (0.1-0.8); Basophils % 0.9; HCT 44.6 % (36.0-46.0); HGB 15.4 g/dL (11.2-15.7); Immature Grans % 0.2; Lymphocytes % 23.9; MCH 31.7 pg (27.0-33.0); MCHC 34.5 % (32.0-36.0); MCV 91.8 fL (80-95); Monocytes % 4.8; Nucleated RBC 0 %; Platelet Count 194 10^3/uL (130-400); RBC 4.86 10^6/uL (3.93-5.22); RDW 12.3 % (11.7-14.6); RDW-SD 41.3 fL; WBC 9.79 10^3/uL (4.4-10.8)
[2021-05-19 22:44] LABS: ALT 20 U/L (14-59); AST 20 U/L (15-37); Albumin 3.6 g/dL (3.4-5.0); Alkaline Phosphatase 70 U/L (46-116); Anion Gap 8.5 mmol/L (3-11); BUN 19 mg/dL (7-18); Bacteria Negative HPF (Negative); Bilirubin, Total 0.5 mg/dL (0.2-1.0); C & S Indicated? No; CO2 27.5 mmol/L (21.0-32.0); Calcium 9.1 mg/dL (8.5-10.1); Casts Negative LPF (Negative); Chloride 106 mmol/L (98-107); Crystals Negative HPF (Negative); Epithelial Cells Negative HPF (Negative); Estimated GFR 54.05 (mL/min/1.73m2); Glucose 207 mg/dL (74-106); Mucus Negative (Negative); Other Cells Negative (Negative); Potassium 4.2 mmol/L (3.5-5.1); Sodium 142 mmol/L (136-145); Total Protein 6.3 g/dL (6.4-8.2)
[2021-05-19 23:05] LABS: Diff Comment Diff Reviewed; RBC Morphology Normal
[2021-05-19 23:06] LABS: Eosinophils % 23.2
[2021-05-23 15:05] LABS: Myoglobin, S 42 mcg/L (<=90)
== END 2021-05-19 14:56 | disposition home or self-care (01) ==
LOC: NCHCN 14:55
PROVIDERS: PCP Internal Medicine; Visit Provider Family Medicine
DX: R31.0 Gross hematuria (principal)
CPT/HCPCS: 80053; 81003; 81015; 83874; 85025

== ENCOUNTER 2021-05-27 17:15 | Outpatient (REF) | payer MEDICARE, BC, SELFPAY | END 2021-05-27 17:16 | disposition home or self-care (01) | LOC: NCHCN 17:15 | PROVIDERS: PCP Internal Medicine; Visit Provider Family Medicine | DX: N39.0 Urinary tract infection, site not specified (principal) | CPT/HCPCS: 87086 ==

== ENCOUNTER 2021-06-29 12:23 | Outpatient (REF) | payer MEDICARE, BC, SELFPAY ==
[2021-06-29 22:16] LABS: Abs Immature Grans 0.03 10^3/uL (0.0-0.06); Absolute Basophil Count 0.02 10^3/uL (0.0-0.2); Absolute Lymphocyte Count 1.61 10^3/uL (1.2-3.4); Absolute Monocyte Count 0.47 10^3/uL (0.1-0.8); Absolute Neutrophil Count 6.71 10^3/uL (1.2-6.7); Basophils % 0.2; Eosinophils % 2.2; HCT 47.5 % (36.0-46.0); HGB 15.8 g/dL (11.2-15.7); Immature Grans % 0.3; Lymphocytes % 17.8; MCH 31.1 pg (27.0-33.0); MCHC 33.3 % (32.0-36.0); MCV 93.5 fL (80-95); MPV 10.2 fL (8.0-11.0); Monocytes % 5.2; Neutrophils % 74.3; Nucleated RBC 0 %; Platelet Count 181 10^3/uL (130-400); RBC 5.08 10^6/uL (3.93-5.22); RDW 12.3 % (11.7-14.6); RDW-SD 42.5 fL; WBC 9.04 10^3/uL (4.4-10.8)
[2021-06-29 22:18] LABS: ESR 17 mm/hr (0-30)
[2021-06-29 22:26] LABS: ALT 41 U/L (14-59); AST 44 U/L (15-37); Alkaline Phosphatase 93 U/L (46-116); Anion Gap 6.7 mmol/L (3-11); BUN 15 mg/dL (7-18); Bilirubin, Total 0.9 mg/dL (0.2-1.0); CO2 31.3 mmol/L (21.0-32.0); CREATININE 0.9 mg/dL (0.55-1.02); Calcium 9.4 mg/dL (8.5-10.1); Chloride 106 mmol/L (98-107); Glucose 126 mg/dL (74-106); Potassium 4.8 mmol/L (3.5-5.1); Sodium 144 mmol/L (136-145); Total Protein 6.9 g/dL (6.4-8.2)
[2021-06-30 17:16] LABS: Rheumatoid Factor <8.6 IU/mL (<12.0)
[2021-07-01 10:08] LABS: Lyme Ab w Rflx to Lyme Confirm Negative (Negative)
[2021-07-01 13:50] LABS: ANA Interpretation Positive (Negative); ANA Titer Pattern 1:160 Homogeneous
[2021-07-01 23:14] LABS: Anaplasma phagocytophilum Negative (Negative); B. miyamotoi PCR Negative (Negative); Babesia divergens/MO-1 Negative (Negative); Babesia duncani Negative (Negative); Babesia microti Negative (Negative); Ehrlichia chaffeensis Negative (Negative); Ehrlichia ewingii/canis Negative (Negative); Ehrlichia muris eauclairensis Negative (Negative)
== END 2021-06-29 12:24 | disposition home or self-care (01) ==
LOC: NCHCN 12:23
PROVIDERS: PCP Internal Medicine; Visit Provider Family Medicine
DX: M25.59 Pain in other specified joint (principal)
CPT/HCPCS: 80053; 85652; 87798; 85025; 86038; 86431; 86618

== ENCOUNTER 2021-07-16 12:43 | Outpatient (REF) | payer MEDICARE, BC, SELFPAY ==
[2021-07-17 16:09] LABS: COVID-19 RT-PCR UVMMC Result Negative (Negative)
== END 2021-07-16 12:44 | disposition home or self-care (01) ==
LOC: NCHCN 12:43
PROVIDERS: PCP Internal Medicine; Visit Provider Family Medicine
DX: Z20.822 Contact with and (suspected) exposure to COVID-19 (principal)
CPT/HCPCS: U0003; U0005

== ENCOUNTER 2021-07-29 01:22 | Outpatient (CLI) | payer MEDICARE, BC, SELFPAY ==
--- NOTE | 2021-07-29 | DI.MRI_ITS ---
Exam(s) MR LUMBAR SPINE WO EXAM: MR LUMBAR SPINE WO CLINICAL HISTORY: LOW BACK PAIN, M54.59. TECHNIQUE: Multiplanar multisequence MRI of the Lumbar spine was performed. COMPARISON: CT CT ABDOMEN PELVIS WO from 05/14/[address] ABDOMEN PELVIS WO from 05/14/2021 FINDINGS: Five lumbar vertebrae are presumed. Conus medullaris is at normal level. There is no evidence of conus mass nor subjacent clumping of in trathecal nerve roots to suggest arachnoiditis. The distal thecal sac appears unremarkable.There is no evidence of Tarlov intrasacral cysts nor other significant findings within the sacral canal Bones:There are no fractures nor ominous osseous lesions in the lumbar vertebral bodies and visualize d sacrum. With respect to the individual levels... T12-L1: Unremarkable L1-2: There is moderate narrowing of the disc space. Anterior osseous lipping. There is relatively symmetrical annular bulging. This extends into the floor of the exiting right neural foramen but the re does not appear to be foraminal stenosis on either side at this level. Also no significant centra l spinal canal stenosis. No facet arthropathy evident. L2-3: There is disc space narrowing which is more prominent on left side than the right side of this disc space. There is symmetrical annular bulging. Central canal dimensions are lower normal althoug h there is slight impingement upon the left lateral side of thecal sac by some degenerative change in the left facet joint. There is some annular bulging into the exiting neural foramina bilaterally. There is mild left-sided foraminal stenosis at this level due to the asymmetric narrowing of the disc on the left side, more so than on the right side. Also related to facet arthropathy left more than right. L3-4: This level exhibits mild disc space narrowing. Also mild Modic type 1 sub endplate marrow katelyn a changes are evident on both sides of the disc space. There is symmetrical broad annular bulging. Mild central spinal canal stenosis. No distinct disc herniation. No significant foraminal narrowing evident. Facet joints exhibit mild degenerative changes bilaterally L4-5: This level exhibits mild relatively symmetrical disc space narrowing. Schmorl's node invaginat ion into the inferior endplate of L4 is noted, without acute intraosseous signal. Consistent with ch ronic. Posteriorly there is symmetrical annular bulging without a dominant disc herniation. Central canal dimensions are lower normal-mild stenosis.. Mild foraminal stenosis on the right side is note d due to annular bulging and disc height loss which is slightly more prominent on the right side than the left side at this level. The exiting neural foramen on the opposite-left side is patent. Mild facet arthropathy. L5-S1: Normal disc height and signal. No disc herniation. No central canal stenosis. No foraminal stenosis evident. Mild degenerative changes in the right facet joint. Left facet joint unremarkable . Soft tissues: paraspinal soft tissues appear unremarkable.Multiple cysts are noted in the kidneys. Largest is in the right kidney and measures 3.9 x 3.3 cm. IMPRESSION: 1. Multilevel findings as described individually above. However, there is no dominant disc herniatio n. There is mild central spinal canal stenosis at L3-4 and L4-5 levels. Is also asymmetric foramina l stenosis as described above, this related to asymmetric disc space height loss on the left versus r ight side of the vertebral bodies disc spaces as described above. 2. Mild facet arthropathy. No significant degenerative listhesis evident. 3. No osseous lesions. Bilateral renal cysts noted. DATA REPOSITORY:
== END 2021-07-29 01:42 ==
PROVIDERS: PCP Internal Medicine; Visit Provider Family Medicine
DX: M54.59 Other low back pain (principal); M48.061 Spinal stenosis, lumbar region without neurogenic claudication
CPT/HCPCS: 72148

== ENCOUNTER 2021-08-10 13:48 | Outpatient (REF) | payer MEDICARE, BC, SELFPAY | END 2021-08-10 13:49 | disposition home or self-care (01) | LOC: NCHCN 13:48 | PROVIDERS: PCP Internal Medicine; Visit Provider Family Medicine | DX: N39.0 Urinary tract infection, site not specified (principal); M54.59 Other low back pain | CPT/HCPCS: 87077; 87086; 87186 ==

== ENCOUNTER 2021-10-01 13:28 | Outpatient (REF) | payer MEDICARE, SELFPAY | END 2021-10-01 13:29 | disposition home or self-care (01) | LOC: NCHCN 13:28 | PROVIDERS: PCP Internal Medicine; Visit Provider Family Medicine | DX: Z20.822 Contact with and (suspected) exposure to COVID-19 (principal); R19.7 Diarrhea, unspecified; E11.9 Type 2 diabetes mellitus without complications | CPT/HCPCS: 87329; 87493; 83630; 87177 ==

== ENCOUNTER 2021-11-26 00:28 | Outpatient (CLI) | payer MEDICARE, SELFPAY ==
--- NOTE | 2021-11-26 | DI.MAMMO_ITS ---
Exam(s) MAMMO SCREENING EXAM: MAMMO SCREENING CLINICAL HISTORY: SCREENING, Z12.39 TECHNIQUE: Mammograms were interpreted according to the usual protocol including computer analysis w [employer] CAD system, tomosynthesis and C-view imaging. COMPARISON: FINDINGS: The breasts are heterogeneously dense. No dominant mass or clumped microcalcification is identified in either breast. The current examination is compared with previous examinations including September 12 and there has been no gross interval change in appearance in comparison with the prior studies. IMPRESSION: No specific evidence of malignancy at this time. Routine screening examinations are suggested yearly intervals in this age group according to the ACS ACR guidelines. BI-RADS Category 1 - Negative Breast Density - Category C - Heterogeneously dense
== END 2021-11-26 00:48 ==
PROVIDERS: PCP Internal Medicine; Visit Provider Family Medicine
DX: Z12.31 Encounter for screening mammogram for malignant neoplasm of breast (principal); R92.8 Other abnormal and inconclusive findings on diagnostic imaging of breast
CPT/HCPCS: 77063; 77067

== ENCOUNTER → 2022-02-10 01:25 | Outpatient (CLI) | payer MEDICARE, SELFPAY ==
--- NOTE | 2022-02-10 14:00 | DI.US_ITS ---
APPROVED REPORT EXAM: Comprehensive 2D, Doppler, and color-flow Echocardiogram Patient Location: Out-Patient Autobody Technician: Shannon Ellis RDCS (AE) Indications: Ventricular tachycardia Other Information Study Quality: Good Conclusion Normal left ventricular wall thickness and chamber size. Estimated ejection fraction is 60%. Wall m otion is normal Normal right ventricular size and systolic function Both atria are normal in size There are no structural valvular abnormalities Mild mitral regurgitation Mild to moderate tricuspid regurgitation. Estimated right ventricular systolic pressure is 29 mmHg Wall motion Left Ventricle The left ventricle is normal size. The left ventricular systolic function is normal. The left ventric ular ejection fraction is within the normal range. There is normal left ventricular wall thickness. T here is normal LV segmental wall motion. There is no ventricular septal defect visualized. LVEF is 60 %. Right Ventricle The right ventricle is normal size. The right ventricular systolic function is normal. The RVSP is 29 .0 mmHg. Atria The left atrium size is normal. The right atrium size is normal. The interatrial septum is intact wit h no evidence for an atrial septal defect. Aortic Valve The aortic valve is normal in structure. Aortic valve is trileaflet. There is no aortic valvular sten osis. No aortic regurgitation is present. Mitral Valve The mitral valve is normal in structure. No evidence of mitral valve stenosis. Mild mitral regurgitat ion.. Tricuspid Valve The tricuspid valve is normal in structure. There is no tricuspid valve stenosis. Mild to moderate tr icuspid regurgitation. Pulmonic Valve The pulmonary valve is normal in structure. There is no pulmonic valvular stenosis. Trace pulmonic re gurgitation. Great Vessels The aortic root is normal in size. The ascending aorta is normal in size. Aortic arch is normal in ca liber. IVC is normal in size and collapses >50% with inspiration. Pericardium There is no pericardial effusion. 2D Dimensions IVSD d PLAX 0.85 cm F: 0.6-1.0 LV Vol A2C d MOD 78.9 mL LVPW d PLAX 0.86 cm F: 0.6 - 1.0 LV Vol A4C d MOD 74.6 mL LVID d PLAX 4.39 cm F: 3.8 - 5.2 LA vol/ BSA A2C s A-L 33.4 mL/m2 LVDs 2.90 cm F: 2.2 - 3.5 LA vol/ BSA A4C s A-L 23.5 mL/m2 Ao Root d 2.57 cm F: 2.7 - 3.3 LA Vol/ BSA Biplane s A-L 28.6 mL/m2 RA Area A4C 10.30 cm2 LA Area A4C s MOD 16.32 cm2 RA Vol/ BSA A4C s A-L 11.5 mL/m2 LA Area A2C s MOD 19.10 cm2 Ao Asc Diam d 3.19 cm F: 2.3 - 3.1 LV EF A4C MOD 58.5 % LV EF Teichholz 62.0 % LV EF A2C MOD 60.9 % LVEF (Dunn's) 59.82 % F: 54 - 74 LV EF Biplane MOD 59.8 % LV Volume 60.68 mL F: 46 - 106 SV 46.98 mL LV Volume Index 33.15 mL/m2 F: 29 - 61 SV Index 25.61 mL/m2 LV Vol Biplane MOD 78.5 mL FS 33.15 % M-Mode TAPSE 2.47 cm (M/F) >1.7 LV Diastology MV E' medial 0.104 (>0.07 m/s) E/A Ratio 1.5 LV E/e MED 8.00 (<14) MV E Vmax 0.83 (0.4-1.3 m/s) MV E' lateral 0.090 (>0.1 m/s) MV A Vmax 0.55 (0.4-1.3 m/s) LV E/e LAT 9.30 (<14) MV E/A Ratio 1.43 MV E/E' medial 8.00 MV E/E' lateral 9.31 Aortic Valve LVOT Area 2.96 cm2 AoV Area Vmax 2.41 cm2 LVOT Vmax 1.07 m/s AoV Area/ BSA (Vmax) 1.31 cm2/m2 LVOT Mean Vijay. 0.69 m/s CHAVA Mean Vijay. 2.21 cm2 LVOT Peak Grad 4.6 mmHg CHAVA Mean Vijay. Index 1.21 cm2/m2 LVOT Mean Grad 2.3 mmHg LVOT VTI 0.287 m LVOT Diam s 1.90 cm AoV Vmax 1.31 m/s Velocity Ratio 0.81 AoV Mean Vijay. 0.92 m/s AoV Peak Grad 6.9 mmHg LVOT SV 84.91 mL AoV Mean Grad 3.8 mmHg AoV VTI 0.292 m AoV Area VTI 2.90 cm2 AoV Area/ BSA (VTI) 1.58 cm/m2 Mitral Valve MV DT 145 (160-240 msec) MV PHT 42 msec MV Area PHT 5.23 cm2 MV VTI 0.313 m MV Area VTI 2.71 (4.0-6.0 cm2) Pulmonary Valve PV Vmax 0.98 (0.5-1.5 m/s) RVOT Peak Gr. 2.42 mmHg PV Peak Grad 3.8 mmHg RVOT Mean Gr. 1.10 mmHg PV Mean Grad 1.8 mmHg RVOT VTI 0.168 m PV VTI 0.232 m RVOT Vmax 0.78 m/s Tricuspid Valve TR Peak Grad 26.0 mmHg TR Vmax 2.55 m/s RA Pressure 3.00 mmHg RVSP (TR) 29.0 mmHg
== END ==
PROVIDERS: PCP Internal Medicine; Visit Provider Internal Medicine Cardiovascular Disease
DX: I47.2 Ventricular tachycardia (principal)
CPT/HCPCS: 93306

== ENCOUNTER 2022-06-15 15:26 | Outpatient (CLI) | payer MEDICARE, SELFPAY ==
[2022-06-15 15:54] VITALS: PULSE 64; O2SAT 97
[2022-06-15] MEDS: methylPREDNISolone ACETATE 40 MG/ML VIAL IJ (15:55)
--- NOTE | 2022-06-15 16:00 | PDOC.PAIN ---
Date of service: 06/15/22 Time of Service: 16:00 Pain Clinic Procedure Note Procedure Note Procedure Note: Pre-procedure pain was 6/10. I completed a left trochanteric bursa injection today using sterile technique. Standard timeout and consent was completed. I palpated the greater trochanter at the point of maximum intensity of pain. The area was marked and cleaned with Chloroprep. After 3 minutes sterile draps were placed. I then used a 25G 1.5 needle to deliver 2 cc of 1% Lidocaine followed by 1 cc of Depomedrol (40 mg/cc) and the needle was flushed with another 2 cc of 1% Lidocaine. The needle was removed without difficulty. No complications. Post-procedure pain was 1/10.
== END 2022-06-15 15:27 | disposition home or self-care (01) ==
PROVIDERS: PCP Internal Medicine; Visit Provider Preventive Medicine Occupational Medicine
DX: M25.552 Pain in left hip (principal); M70.62 Trochanteric bursitis, left hip; M76.32 Iliotibial band syndrome, left leg
CPT/HCPCS: 20605; J1030

== ENCOUNTER 2022-07-09 19:53 | Emergency (ER) | payer MEDICARE, SELFPAY ==
[2022-07-09 20:02] VITALS: BP 156/72; PULSE 66; RESP 16; TEMP 36.6; O2SAT 99
--- NOTE | 2022-07-09 20:15 | W.ED.GENAD ---
Discharge Plan Disposition Patient Disposition: HOME Condition: Stable Discharge Details Clinical Impression: Cat bite Primary Care Provider: Mirza Hassan ED Provider: Holli Gonsales Home Meds and New Rx's Prescriptions: New doxycycline hyclate 100 mg tablet 100 mg PO BID 10 Days Qty: 20 0RF Rx Instructions: Take one tablet twice daily x 10 days Continued metformin 500 mg tablet extended release 24 hr 500 mg PO DAILY pantoprazole 40 mg tablet,delayed release (DR/EC) 40 mg PO DAILY Eliquis 5 mg tablet 5 mg PO BID magnesium 250 mg tablet 250 mg PO DAILY nitrofurantoin macrocrystal 100 mg capsule 100 mg PO QHS Rx Instructions: must administer with a meal/food multivitamin Tablet 1 tab PO DAILY epinephrine [EpiPen] 0.3 mg/0.3 mL auto-injector 0.3 mg IM Q4H PRN ondansetron HCl 4 mg tablet 4 mg PO Q8H bisoprolol fumarate 5 mg tablet 5 mg PO DAILY simvastatin 40 mg tablet 40 mg PO DAILY Discharge Instructions Instructions: Cat Scratch Disease (ED) Additional Instructions: Please take the antibiotics twice daily as instructed. Take the antibiotic with yogurt or a probiotic. Please give the antibiotics at least 3 days to take and if any extension beyond the markings after that or any worsening or concerns please return to the ER. Follow up with primary care provider in 3-5 days. Return to ED sooner if any worsening or concerns. Increase oral fluids. Please take Tylenol or Ibuprofen with food every 4-6 hours as needed for pain and swelling. Referrals: Mirza Hassan MD [Primary Care Provider] - 1 week Medical Decision Making 76-year-old female presents to the ER with after approximately 24 hours after a cat bite to her right forearm. 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 She has multiple scabbed over bite olivares noted to her right forearm with surrounding erythema. We will give doxycycline first dose here twice daily x10 days. We will give 2 doses to go. We will yamileth erythema and instruct on home care and strict return instructions. This text was generated using [employer] system, please disregard any oddities of phrase or misspellings. HPI General Mode of arrival: ambulatory. Date/Time Provider Initiated Documentation: 07/09/22 20:10. Limitations to Documentation: no limitations. Information obtained by: patient, RN notes reviewed and old records reviewed. HPI Narrative: 76-year-old female presents to the ER with after approximately 24 hours after a cat bite to her right forearm. 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 She has multiple scabbed over bite olivares noted to her right forearm with surrounding erythema. No red streaks noted. Denies any body aches chills or other complaints. Denies any pain in her axilla or antecubital space. Past medical history includes GERD, dyslipidemia, A. fib with RVR is type 2 diabetes. Related Data Home Medications Medication Instructions Recorded Confirmed apixaban 5 mg tablet (Eliquis) 5 mg PO BID 12/29/20 07/09/22 magnesium 250 mg tablet 250 mg PO DAILY 12/29/20 07/09/22 nitrofurantoin macrocrystal 100 mg 100 mg PO QHS 12/29/20 07/09/22 capsule pantoprazole 40 mg tablet,delayed 40 mg PO DAILY 12/29/20 07/09/22 release metformin 500 mg tablet,extended 500 mg PO DAILY 02/02/21 07/09/22 release 24 hr epinephrine 0.3 mg/0.3 mL 0.3 mg IM Q4H PRN 06/07/22 07/09/22 injection, auto-injector (EpiPen) multivitamin 1 tab PO DAILY 06/07/22 07/09/22 ondansetron HCl 4 mg tablet 4 mg PO Q8H 06/07/22 07/09/22 bisoprolol fumarate 5 mg tablet 5 mg PO DAILY 06/15/22 07/09/22 simvastatin 40 mg tablet 40 mg PO DAILY 06/15/22 07/09/22 doxycycline hyclate 100 mg tablet 100 mg PO BID 10 days #20 tabs 07/09/22 Previous Rx's Medication Instructions Recorded doxycycline hyclate 100 mg tablet 100 mg PO BID 10 days #20 tabs 07/09/22 Allergies Allergy/AdvReac Type Severity Reaction Status Date / Time Sulfa (Sulfonamide Allergy Severe Cardiac Verified 07/09/22 20:07 Antibiotics) Dysrythmia Schafer Allergy Intermediate throat itch Verified 07/09/22 20:07 peach Allergy Intermediate throat and Verified 07/09/22 20:07 eye itch amoxicillin trihydrate Allergy Mild Skin Rash Verified 07/09/22 20:07 [From Augmentin] clopidogrel bisulfate Allergy Mild Hives Verified 07/09/22 20:07 [From Plavix] erythromycin base Allergy Mild Skin Rash Verified 07/09/22 20:07 [Erythromycin Base] potassium clavulanate Allergy Mild Skin Rash Verified 07/09/22 20:07 [From Augmentin] aspartame Allergy Unknown Unverified 07/09/22 20:07 [From Nutrasweet Aspartame] cephalexin Allergy Unknown Unverified 07/09/22 20:07 cyclobenzaprine Allergy Unknown Unverified 07/09/22 20:07 [From Flexeril] sulfamethoxazole Allergy Unknown Unverified 07/09/22 20:07 [From Bactrim] trimethoprim [From Bactrim] Allergy Unknown Unverified 07/09/22 20:07 nectarines Allergy Mild throat and Uncoded 07/09/22 20:07 eye itch nuts Allergy Mild throat and Uncoded 07/09/22 20:07 eye itch General Stated Complaint: AnimalBite DERIK: 4 Review of Systems All systems reviewed & are unremarkable except as noted in HPI and below Integumentary/Breasts Skin/Breast: Reports as per HPI, Reports erythema and Reports wounds PFSH All Active Problems (Updated 07/09/22 @ 20:21 by Holli Gonsales NP) Cat bite (Acute) Iliotibial band syndrome, left leg (Acute) Trochanteric bursitis of left hip (Acute) Adhesive capsulitis of right shoulder (Acute) Diet-controlled type 2 diabetes mellitus (Chronic) Discharge planning issues (Acute) GERD (gastroesophageal reflux disease) (Chronic) Dyslipidemia (Chronic) Alcohol abuse (Chronic) Atrial fibrillation with RVR (Acute) Medical History Chronic low back pain Diabetes mellitus History of recurrent UTIs Hyperlipidemia Hypertension IBS (irritable bowel syndrome) Interstitial cystitis Kidney stone Left ear hearing loss Paroxysmal A-fib Recurrent UTI Sigmoid diverticulosis 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; no h/o CVA/TIA Vaginal atrophy Surgical History Hx of colonoscopy x5; last one with sigmoid diverticulosis S/P appendectomy S/P cholecystectomy S/P tonsillectomy Family History Paternal Aunt Colon cancer Maternal Uncle Colon cancer Social History Smoking/Tobacco Use Status: Former Tobacco Use Smoking risk assessment performed?: Yes Alcohol Intake: current Alcohol Intake frequency: 3 or more drinks per day Alcohol type: wine Counseling given: Yes Counseling provided: reduce to 2 or less/day Drug use: Never Substance use type: does not use Current gender identity: female Do you feel safe at home: Yes Do you feel safe in your relationship?: Yes Exam Extrem Right upper extremity: elbow/forearm Details: warmth, ecchymosis and penetrating wound Elbow/forearm/wrist images: 1. Multiple scabbed over puncture wound/bite olivares noted with surrounding erythema 2. Scabbed over puncture wound with surrounding erythema 3. Scabbed over puncture wound and surrounding erythema 4. Erythema 5. Erythema Course Vital Signs Vital signs: Vital Signs Temperature 36.6 C 07/09/22 20:02 Pulse 66 07/09/22 20:02 Respiratory Rate 16 07/09/22 20:02 Blood Pressure 156/72 H 07/09/22 20:02 Pulse Oximetry 99 07/09/22 20:02 Temperature 36.6 C 07/09/22 20:02 Temperature Source Skin 07/09/22 20:02 Pulse 66 07/09/22 20:02 Respiratory Rate 16 07/09/22 20:02 Respiratory Effort 07/09/22 20:02 Blood Pressure 156/72 H 07/09/22 20:02 Pulse Oximetry 99 07/09/22 20:02 Oxygen Delivery Method Room Air 07/09/22 20:02 Oxygen Flow Rate 0 07/09/22 20:02 Pain Level 4 07/09/22 20:02
[2022-07-09] MEDS: Doxycycline Hyclate 100 MG CAP PO ×2 (20:24→20:32)
[2022-07-09] MEDS: Doxycycline Hyclate 100 MG, 2 CAPS/BTL PO (20:24)
== END 2022-07-09 20:31 | disposition home or self-care (01) ==
PROVIDERS: Emergency Provider Registered Nurse Emergency; PCP Family Medicine
DX: S51.851A Open bite of right forearm, initial encounter (principal); W55.01XA Bitten by cat, initial encounter; E11.9 Type 2 diabetes mellitus without complications; I10 Essential (primary) hypertension; Z79.84 Long term (current) use of oral hypoglycemic drugs
CPT/HCPCS: 99283

== ENCOUNTER 2022-08-08 17:29 | Outpatient (REF) | payer MEDICARE, SELFPAY ==
[2022-08-08 20:52] LABS: Abs Immature Grans 0.02 10^3/uL (0.0-0.06); Absolute Basophil Count 0.04 10^3/uL (0.0-0.2); Absolute Eosinophil Count 0.18 10^3/uL (0.0-0.7); Absolute Lymphocyte Count 2.84 10^3/uL (1.2-3.4); Absolute Monocyte Count 0.44 10^3/uL (0.1-0.8); Absolute Neutrophil Count 4.01 10^3/uL (1.2-6.7); Basophils % 0.5; Eosinophils % 2.4; HGB 15.3 g/dL (11.2-15.7); Immature Grans % 0.3; Lymphocytes % 37.7; MCH 30.7 pg (27.0-33.0); MCHC 34.8 % (32.0-36.0); MCV 88 fL (80-95); MPV 9.8 fL (8.0-11.0); Monocytes % 5.8; Neutrophils % 53.3; Platelet Count 211 10^3/uL (130-400); RBC 4.98 10^6/uL (3.93-5.22); RDW 12.5 % (11.7-14.6); RDW-SD 40.7 fL; WBC 7.53 10^3/uL (4.4-10.8)
[2022-08-08 21:01] LABS: ALT 19 U/L (14-59); AST 19 U/L (15-37); Albumin 4.1 g/dL (3.4-5.0); Alkaline Phosphatase 71 U/L (46-116); BUN 24 mg/dL (7-18); Bilirubin, Total 0.5 mg/dL (0.2-1.0); Calcium 9.5 mg/dL (8.5-10.1); Chloride 103 mmol/L (98-107); Estimated GFR 58.02 (mL/min/1.73m2); Glucose 116 mg/dL (74-106); Lipase 154 U/L (73-393); Potassium 3.9 mmol/L (3.5-5.1); Sodium 140 mmol/L (136-145); Total Protein 7.3 g/dL (6.4-8.2)
== END 2022-08-08 17:30 | disposition home or self-care (01) ==
LOC: NCHCN 17:29
PROVIDERS: PCP Family Medicine; Visit Provider Family Medicine
DX: R10.31 Right lower quadrant pain (principal); I10 Essential (primary) hypertension; Z00.00 Encounter for general adult medical examination without abnormal findings
CPT/HCPCS: 80053; 83690; 85025

== ENCOUNTER → 2022-08-16 02:37 | Outpatient (CLI) | payer MEDICARE, SELFPAY ==
--- NOTE | 2022-08-16 08:33 | DI.CT_ITS ---
Exam(s) CT ABDOMEN PELVIS WO EXAM: CT ABDOMEN PELVIS WO CLINICAL HISTORY: RLQ ABD PAIN, R10.31; RT FLANK PAIN; H/O KIDNEY STONE, Z87.442. TECHNIQUE: Imaging Protocol: Axial computed tomography images with coronal and sagittal reformatted images were created and reviewed. CT CT ABDOMEN PELVIS WO from 05/14/2021 FINDINGS: ABDOMEN: Lung Bases: There is a stable 6 mm nodule in the left lower lobe. This is been unchanged since 2018. Liver: Normal density. There is a stable 1.7 cm round hypodense lesion in the left lobe of the liver. This likely reflects a cyst. There is a new subtle area of decreased attenuation in the left lobe of the liver measuring 1.5 cm. Gallbladder and biliary tract: Status post cholecystectomy. Stable bile duct. Pancreas: Normal density, no abnormal calcifications or inflammatory process. Spleen: Normal. Kidneys: Normal size, contour and axis.There is bilateral nephrolithiasis. No evidence of hydronephr osis. There are stable bilateral renal cysts. Adrenal glands: No mass is seen. Lymph nodes: Within normal limits. Abdominal Aorta: Abdominal portion non-dilated. Atherosclerosis is present. PELVIS: Bladder:There in bladder is incompletely distended but grossly unremarkable. Bowel: No obstruction or bowel wall thickening. The patient appears to be status post appendectomy. There is colonic diverticulosis but no evidence of acute diverticulitis. Peritoneal cavity: No ascites, collection or mesenteric inflammatory response. No free air. Reproductive organs: There are several uterine fibroids present. Bones: Within normal limits for the patient's age. No change compared to the prior examinations. Th ere are degenerative changes at L2-L3 resulting in mild central spinal canal and moderate left neural foraminal stenosis. Degenerative changes at L3-L4 included diffuse disc bulge and degenerative face t arthropathy. The findings result in moderately severe central spinal canal stenosis and moderate l eft neural foraminal stenosis. Soft Tissues: Within normal limits. IMPRESSION: 1. Bilateral nephrolithiasis. No evidence of hydronephrosis. 2. Degenerative changes in the lumbar spine resulting in central spinal canal and neural foraminal st enosis as described above. 3. Subtle 1.7 cm area of decreased attenuation in the left lobe of the liver. This area should be fu rther evaluated with a MRI without and with contrast of the abdomen. This is an unexpected finding. Unexpected findings RADIATION DOSE DELIVERED: 838.08mGy.cm Total DLP DATA REPOSITORY: All CT scans at this facility are submitted to the National Radiology Data Registry (NRDR) Dose Index Registry (DIR) with the [employer] (ACR). RADIATION OPTIMIZATION: All CT scans at this facility use at least one of these dose optimization te chniques: automated exposure control; mA and/or kV adjustment per patient size (includes targeted exa ms where dose is matched to clinical indication); or iterative reconstruction.
== END ==
PROVIDERS: PCP Family Medicine; Visit Provider Internal Medicine
DX: R10.31 Right lower quadrant pain (principal); Z87.442 Personal history of urinary calculi; N20.0 Calculus of kidney; M47.816 Spondylosis without myelopathy or radiculopathy, lumbar region
CPT/HCPCS: 74176

== ENCOUNTER 2022-09-21 02:00 | Outpatient (CLI) | payer MEDICARE, SELFPAY ==
--- NOTE | 2022-09-21 | DI.MRI_ITS ---
Exam(s) MR ABDOMEN WO/W EXAM: MR ABDOMEN WO/W CLINICAL HISTORY: ABNL ABD IMAGING R93.5 ABD/PEL CT ON 08/16/22 LIVER LESION K76.9 TECHNIQUE: Multiplanar multisequence MRI of the Abdomen was performed. CONTRAST MATERIAL: IV Contrast: 15 mL of Dotarem contrast administered. COMPARISON: CT CT ABDOMEN PELVIS WO from 05/14/[address] ABDOMEN PELVIS WO from 08/16/2022 FINDINGS: Recent CT question subtle area of decreased attenuation in the left lobe measuring 1.5 cm. Liver: 17 millimeter cyst left lobe is again demonstrated.. Additional tiny cyst near the dome. Add itional tiny cyst the in the superior right lobe. The on CT appears to correspond to an area of foca l fat on MRI. Pancreas: Unremarkable. Gallbladder and Bile Ducts: Status post cholecystectomy. No ductal dilatation or stones. Adrenals: Unremarkable. Kidneys: Multiple bilateral renal cysts. Spleen: Unremarkable. Small accessory spleen. Aorta: Unremarkable. Soft Tissues: Unremarkable. Bone: Degenerative changes of the lumbar spine. Mild dextroscoliosis. Lymph Nodes: Unremarkable. IMPRESSION: Area in question on recent CT corresponds to a small area of focal fatty infiltration on MRI. No jatin picious findings. DATA REPOSITORY:
[2022-09-21] MEDS: Normal Saline - Diluent 50 ML VIAL 25 ML IJ (09:49)
[2022-09-21] MEDS: Gadoterate meglumine 20 ML VIAL 15 ML IVP (09:50)
== END 2022-09-21 02:20 ==
LOC: DI 02:00
PROVIDERS: PCP Family Medicine; Visit Provider Internal Medicine
DX: R93.5 Abnormal findings on diagnostic imaging of other abdominal regions, including retroperitoneum (principal); K76.9 Liver disease, unspecified
CPT/HCPCS: 74183

== ENCOUNTER 2022-11-28 02:09 | Outpatient (CLI) | payer MEDICARE, SELFPAY ==
--- NOTE | 2022-11-28 11:45 | DI.MAMMO_ITS ---
Exam(s) MAMMO SCREENING EXAM: MAMMO SCREENING CLINICAL HISTORY: SCREENING, Z12.31, [facility], Z00.00. TECHNIQUE: Bilateral full field digital CC and MLO mammographic images were obtained with 3D tomosyn thesis and utilizing computer aided detection (CAD). COMPARISON: Prior mammograms were reviewed. FINDINGS: There has been no significant change in the appearance and distribution of the fibroglandular tissue. Multiple benign-appearing microcalcifications are again noted in both breasts. There are no new spiculated masses nor malignant appearing microcalcification groups. There is no significant architectural distortion nor skin thickening-retraction. IMPRESSION: No radiographic evidence of malignancy. Stable benign-appearing findings. BI-RADS Category 2 - Benign Findings Breast Density - Category C - Heterogeneously dense Breast density Category C or D implies that the patient has dense breast tissue. Dense breast tissue can make it harder to find cancer on a mammogram. Dense breast tissue is also associated with an incr eased risk of breast cancer. This information about the result of the mammogram report was provided to the patient to raise their awareness. Use this report when you speak with the patient about their risks for breast cancer, which includes their family history. At that time, you may recommend additional screening tests (Ultrasoun d or MRI) as these tests may add significant information. A negative radiographic report should not delay biopsy if a dominant or clinically suspicious mass is present. Up to ten percent of cancers are not identified on mammography. A negative report may reinforce clinical impression. Adenosis and dense breasts may obscure an underlying neoplasm. False positive reports average 6 to 10%. Patient will receive a letter notifying them of these results.
== END 2022-11-28 02:29 ==
LOC: DI 02:09
PROVIDERS: PCP Family Medicine; Visit Provider Family Medicine
DX: Z12.31 Encounter for screening mammogram for malignant neoplasm of breast (principal); R92.0 Mammographic microcalcification found on diagnostic imaging of breast
CPT/HCPCS: 77063; 77067

== ENCOUNTER 2023-03-26 19:47 | Emergency (ER) | payer MEDICARE, SELFPAY ==
[2023-03-26 19:55] VITALS: BP 180/82; PULSE 84; RESP 18; TEMP 36.8; O2SAT 99
[2023-03-26 20:22] LABS: Bilirubin Negative (Negative); Blood Large (Negative); Clarity Clear (Clear); Glucose Negative (Negative); Ketones Negative (Negative); Leukocyte Esterase Large (Negative); Nitrite Negative (Negative); Urobilinogen 0.2 mg/dL (Up to 0.2); pH 6.5 (5-8)
[2023-03-26 20:31] LABS: Bacteria Few HPF (Negative); C & S Indicated? Yes; Casts Negative LPF (Negative); Crystals Negative HPF (Negative); Epithelial Cells Rare HPF (Negative); Mucus Negative (Negative); WBC >50 HPF (0-5)
[2023-03-26] MEDS: Normal Saline 1,000 ML 1000 ML IV (20:40)
[2023-03-26 20:52] LABS: HCT 42.9 % (36.0-46.0); HGB 15.2 g/dL (11.2-15.7); MCH 31.1 pg (27.0-33.0); MCHC 35.4 % (32.0-36.0); MCV 88 fL (80-95); MPV 9.2 fL (8.0-11.0); Platelet Count 192 10^3/uL (130-400); RBC 4.88 10^6/uL (3.93-5.22); RDW 12.3 % (11.7-14.6); RDW-SD 39.7 fL; WBC 10.65 10^3/uL (4.4-10.8)
--- NOTE | 2023-03-26 20:58 | ED.GENADUL_ITS ---
Discharge Plan Disposition Patient Disposition: Home Discharge Details Clinical Impression: Urinary tract infection Primary Care Provider: Mirza Hassan ED Provider: Charlene Galvan Home Meds and New Rx's Prescriptions: New ciprofloxacin HCl [Cipro] 500 mg tablet 500 mg PO BID Qty: 14 0RF phenazopyridine [Pyridium] 200 mg tablet 200 mg PO TID PRNQty: 6 0RF Held ondansetron HCl 4 mg tablet 4 mg PO Q8H Hold Instructions: until antibiotics completed simvastatin 40 mg tablet 40 mg PO DAILY Hold Instructions: until antibiotics completed Discontinued nitrofurantoin macrocrystal 100 mg capsule 100 mg PO QHS Rx Instructions: must administer with a meal/food No Action metformin 500 mg tablet extended release 24 hr 500 mg PO DAILY pantoprazole 40 mg tablet,delayed release (DR/EC) 40 mg PO DAILY Eliquis 5 mg tablet 5 mg PO BID magnesium 250 mg tablet 250 mg PO DAILY multivitamin Tablet 1 tab PO DAILY epinephrine [EpiPen] 0.3 mg/0.3 mL auto-injector 0.3 mg IM Q4H PRN bisoprolol fumarate 5 mg tablet 5 mg PO DAILY (DME) blood sugar diagnostic Kit See Rx Instructions .Route Rx Instructions: As directed AZO D-Mannose 500 mg capsule PO Discharge Instructions Instructions: Urinary Tract Infection in Women (ED) Additional Instructions: Take the Pyridium and Cipro as prescribed. Hold the simvastatin and do not take Zofran while on the antibiotics. Return to ED for fever over 100.4 with severe flank pain or any other concerns. Recheck with your PCP next week. Chat with her about getting a glucometer to check your sugars at home. Medical Decision Making Patient reports that she ate apple pie 2 hours prior to arrival, likely explaining her elevayted FS. She does take 500 mg of metformin per day for adult-onset diabetes. She no longer takes nitrofurantoin. She does not take her fingersticks at home and I advised her to chat with her primary care doc about this. She is nontoxic-appearing with no fever and I will discharge her home on antibiotics. She will hold her simvastatin while on the antibiotics. We also discussed the black box warning with quinolones. She does not take Zofran frequently. Lab Data Lab results reviewed: Yes I reviewed the patient's lab results. Lab results narrative: Patient CBC and comprehensive metabolic panel look great except for the glucose of 210. HPI General Date/Time Provider Initiated Documentation: 03/26/23 20:04 . History of Present Illness Quality is described as stabbing, HPI Narrative: This 77-year-old female patient presents with a chief complaint of urinary symptoms. She reports that this morning she began having frequency urgency and pain on urination. She thought that she saw some blood in her urine. She denies flank pain or fever. She is also having some bladder spasm. Severity is moderate but she does not want to get worse. Spasms do not radiate anywhere. The symptoms come on when she tries to pee. She did take an old Macrobid which did nothing. She has a history of interstitial cystitis but has not had a problem for 3 to 4 years. She used to take Macrobid prophylactically but has not in 3 to 4 years. She has no nausea, vomiting, or diarrhea. There is no flank pain. Related Data Home Medications Medication Instructions Recorded Confirmed apixaban 5 mg tablet (Eliquis) 5 mg PO BID 12/29/20 11/30/22 magnesium 250 mg tablet 250 mg PO DAILY 12/29/20 11/30/22 pantoprazole 40 mg tablet,delayed 40 mg PO DAILY 12/29/20 11/30/22 release metformin 500 mg tablet,extended 500 mg PO DAILY 02/02/21 11/30/22 release 24 hr epinephrine 0.3 mg/0.3 mL 0.3 mg IM Q4H PRN 06/07/22 11/30/22 injection, auto-injector (EpiPen) multivitamin 1 tab PO DAILY 06/07/22 11/30/22 ondansetron HCl 4 mg tablet 4 mg PO Q8H 06/07/22 11/30/22 bisoprolol fumarate 5 mg tablet 5 mg PO DAILY 06/15/22 11/30/22 simvastatin 40 mg tablet 40 mg PO DAILY 06/15/22 11/30/22 blood sugar diagnostic 10/26/22 11/30/22 d-mannose 500 mg capsule (AZO mg PO 10/26/22 11/30/22 D-Mannose) ciprofloxacin HCl 500 mg tablet 500 mg PO BID #14 tabs 03/26/23 (Cipro) phenazopyridine 200 mg tablet 200 mg PO TID PRN 6 doses #6 tabs 03/26/23 (Pyridium) Previous Rx's Medication Instructions Recorded ciprofloxacin HCl 500 mg tablet 500 mg PO BID #14 tabs 03/26/23 (Cipro) phenazopyridine 200 mg tablet 200 mg PO TID PRN 6 doses #6 tabs 03/26/23 (Pyridium) Allergies Allergy/AdvReac Type Severity Reaction Status Date / Time Sulfa (Sulfonamide Allergy Severe Cardiac Verified 11/30/22 10:00 Antibiotics) Dysrythmia Schafer Allergy Intermediate throat itch Verified 11/30/22 10:00 peach Allergy Intermediate throat and Verified 11/30/22 10:00 eye itch amoxicillin trihydrate Allergy Mild Skin Rash Verified 11/30/22 10:00 [From Augmentin] clopidogrel bisulfate Allergy Mild Hives Verified 11/30/22 10:00 [From Plavix] erythromycin base Allergy Mild Skin Rash Verified 11/30/22 10:00 [Erythromycin Base] potassium clavulanate Allergy Mild Skin Rash Verified 11/30/22 10:00 [From Augmentin] aspartame Allergy Unknown Unverified 11/30/22 10:00 [From Nutrasweet Aspartame] cephalexin Allergy Unknown Unverified 11/30/22 10:00 cyclobenzaprine Allergy Unknown Unverified 11/30/22 10:00 [From Flexeril] sulfamethoxazole Allergy Unknown Unverified 11/30/22 10:00 [From Bactrim] trimethoprim [From Bactrim] Allergy Unknown Unverified 11/30/22 10:00 nitrofurantoin Allergy Verified 11/30/22 10:00 nectarines Allergy Mild throat and Uncoded 11/30/22 10:00 eye itch nuts Allergy Mild throat and Uncoded 11/30/22 10:00 eye itch bee sting Allergy Uncoded 11/30/22 10:00 General Stated Complaint: Urinary DERIK: 3 Review of Systems Constitutional Constitutional: Denies chills, Denies fever(s), Denies headache(s) and Denies weakness Eyes Eyes: Denies diplopia and Reports other (no redness) ENT Ears, Nose, Mouth, and Throat: Denies otalgia, Denies headache(s), Denies nasal congestion, Denies nasal discharge, Denies neck pain and Denies sore throat Cardiovascular Cardiovascular: Denies chest pain, Denies palpitations and Denies dyspnea Respiratory Respiratory: Denies cough and Denies dyspnea Gastrointestinal Gastrointestinal: Reports abdominal pain (cramping), Denies diarrhea, Denies nausea and Denies vomiting Genitourinary Genitourinary: Reports dysuria, Reports urinary urgency and Reports other (No flank pain) Musculoskeletal Musculoskeletal: Denies myalgias, Denies muscle weakness, Denies neck pain, Denies numbness and Reports other (edema) Integumentary/Breasts Skin/Breast: Denies change in pigmentation and Denies rash Neurologic Neurologic: Denies headache(s), Denies numbness and Denies weakness Endocrine Endocrine: Denies palpitations PFSH All Active Problems Urinary tract infection (Acute) Sensorineural hearing loss (SNHL) of both ears (Acute) Otalgia, left ear (Acute) Iliotibial band syndrome, left leg (Acute) Trochanteric bursitis of left hip (Acute) Adhesive capsulitis of right shoulder (Acute) Diet-controlled type 2 diabetes mellitus (Chronic) Discharge planning issues (Acute) GERD (gastroesophageal reflux disease) (Chronic) Dyslipidemia (Chronic) Alcohol abuse (Chronic) Atrial fibrillation with RVR (Acute) Medical History Abdominal pain, right lower quadrant Abnormal findings on diagnostic imaging of abdomen Benign essential tremor Chronic low back pain Diabetes mellitus History of recurrent UTIs Hyperlipidemia Hypertension IBS (irritable bowel syndrome) Interstitial cystitis Kidney stone Left ear hearing loss Liver lesion Paroxysmal A-fib Preventative health care Recurrent UTI Right flank pain Screening mammogram, encounter for Sigmoid diverticulosis 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; no h/o CVA/TIA Vaginal atrophy Surgical History Hx of colonoscopy x5; last one with sigmoid diverticulosis S/P appendectomy S/P cholecystectomy S/P tonsillectomy Family History Paternal Aunt Colon cancer Maternal Uncle Colon cancer Social History Smoking/Tobacco Use Status: Former Tobacco Use Smoking risk assessment performed?: Yes Alcohol Intake: current Alcohol Intake frequency: 3 or more drinks per day Alcohol type: wine Counseling given: Yes Counseling provided: reduce to 2 or less/day Drug use: Never Substance use type: does not use Current gender identity: female Do you feel safe at home: Yes Do you feel safe in your relationship?: Yes Course Vital Signs Vital signs: Vital Signs Temperature 36.8 C 03/26/23 19:55 Pulse 84 03/26/23 19:55 Respiratory Rate 18 03/26/23 19:55 Blood Pressure 180/82 H 03/26/23 19:55 Pulse Oximetry 99 03/26/23 19:55 Temperature 36.8 C 03/26/23 19:55 Temperature Source Oral 03/26/23 19:55 Pulse 84 03/26/23 19:55 Respiratory Rate 18 03/26/23 19:55 Respiratory Effort Normal 03/26/23 20:55 Blood Pressure 180/82 H 03/26/23 19:55 Blood Pressure Position Sitting 03/26/23 19:55 Pulse Oximetry 99 03/26/23 19:55 Oxygen Delivery Method Room Air 03/26/23 19:55 Oxygen Flow Rate 0 03/26/23 19:55 Pain Level 90 03/26/23 19:55 Lab/Test Results Lab/Test Results: 03/26/23 20:10 Urine - Reflex from Ua Urine Culture - Pending Laboratory Tests Range/Units 03/26/23 03/26/23 20:10 20:40 WBC (4.4-10.8) 10^3/uL 10.65 RBC (3.93-5.22) 10^6/uL 4.88 Hgb (11.2-15.7) g/dL 15.2 Hct (36.0-46.0) % 42.9 MCV (80-95) fL 88 MCH (27.0-33.0) pg 31.1 MCHC (32.0-36.0) % 35.4 RDW (11.7-14.6) % 12.3 Plt Count (130-400) 10^3/uL 192 MPV (8.0-11.0) fL 9.2 Urine Color (Yellow) Yellow Urine Clarity (Clear) Clear Urine pH (5-8) 6.5 Ur Specific [place]ster (1.005-1.025) 1.010 Urine Protein (Negative) mg/dL 30 H Urine Ketones (Negative) mg/dL Negative Urine Blood (Negative) Large H Urine Nitrite (Negative) Negative Urine Bilirubin (Negative) Negative Urine Urobilinogen (Up to 0.2) mg/dL 0.2 Ur Leukocyte Esterase (Negative) Large H Urine RBC (0-2) HPF 3-5 H Urine WBC (0-5) HPF >50 H Ur Epithelial Cells (Negative) HPF Rare Urine Crystals (Negative) HPF Negative Urine Bacteria (Negative) HPF Few Urine Casts (Negative) LPF Negative Urine Mucus (Negative) Negative Ur Culture Indicated? Yes Urine Glucose (Negative) mg/dL Negative
[2023-03-26 21:04] LABS: Anion Gap 8.9 mmol/L (3-11); BUN 17 mg/dL (7-18); CO2 27.1 mmol/L (21.0-32.0); CREATININE 1.1 mg/dL (0.55-1.02); Calcium 9.3 mg/dL (8.5-10.1); Chloride 105 mmol/L (98-107); Estimated GFR 51.75 (mL/min/1.73m2); Glucose 210 mg/dL (74-106); Potassium 3.8 mmol/L (3.5-5.1); Sodium 141 mmol/L (136-145)
[2023-03-26] MEDS: Phenazopyridine 200 MG TAB PO (21:50)
[2023-03-26] MEDS: Ciprofloxacin 500 MG TAB PO (21:50)
--- NOTE | 2023-03-29 07:38 | NUR.NOTE ---
Nursing Note: in chart for antibiotics
== END 2023-03-26 21:51 | disposition home or self-care (01) ==
PROVIDERS: Emergency Provider Emergency Medicine; PCP Family Medicine
DX: N39.0 Urinary tract infection, site not specified (principal)
CPT/HCPCS: 36416; 80048; 82962; 85027; 87077; 96360; 99284; 81003; 81015; 87086; 87186

== ENCOUNTER → 2023-10-20 01:21 | Outpatient (CLI) | payer MEDICARE, SELFPAY ==
--- NOTE | 2023-10-20 | DI.US_ITS ---
Exam(s) US RENAL EXAM: US RENAL CLINICAL HISTORY: RECURRENT UTI N39.0 TECHNIQUE: Ultrasound of both kidneys performed using standard protocol. COMPARISON: Prior MRI 09/21/[address] scan of 08/16/2022. FINDINGS: RIGHT KIDNEY: Measures 10.3 cm in length. There is 4.6 x 4.2 x 3.1 cm cyst again noted. A smaller cyst is noted in the inferior pole region. Normal cortical thickness and corticomedullary differentiation .No solid masses No intrarenal calculi nor hydronephrosis. LEFT KIDNEY: Measures 9.7 cm in length. There is an exophytic 1.7 x 2.0 cm benign cyst in the superior pole regio n. Normal cortical thickness and corticomedullary differentiaion. No solids masses. No intrarenal c alculi nor hydonephrosis. URINARY BLADDER: Prevoid volume is 96 cc Postvoid volume is 0 cc No evidence of bladder mass nor diverticuli. Ureterovesical jets: Both identified and appear symmetrical IMPRESSION: 1. Bilateral benign cysts are again noted in both kidneys. Minimal if any significant change. No s olid renal masses. 2. I note that prior CT scan of August 2022 revealed a tiny punctate calculus in the right kidney and a slightly larger 2-3 millimeter calculus in left kidney. These would be difficult to appreciate on ultrasound. If clinically indicated repeat noninfused CT scan can be performed if 1 wishes to kn ow if there are indeed still remaining small intrarenal calculi. DATA REPOSITORY:
== END ==
PROVIDERS: PCP Family Medicine; Visit Provider Urology
DX: N39.0 Urinary tract infection, site not specified (principal); N28.1 Cyst of kidney, acquired
CPT/HCPCS: 76770

== ENCOUNTER 2023-10-30 16:49 | Outpatient (REF) | payer MEDICARE, SELFPAY ==
[2023-10-30 15:35] LABS: Anion Gap 8.2 mmol/L (3-11); BUN 18 mg/dL (7-18); CO2 29.8 mmol/L (21.0-32.0); Calcium 9.6 mg/dL (8.5-10.1); Chloride 102 mmol/L (98-107); Estimated GFR 57.66 (mL/min/1.73m2); Glucose 274 mg/dL (74-106); Magnesium 1.8 mg/dL (1.8-2.4); Potassium 4.4 mmol/L (3.5-5.1); Sodium 140 mmol/L (136-145)
[2023-10-30 16:17] LABS: Hemoglobin A1C 10.3 % (<5.7)
== END 2023-10-30 16:50 | disposition home or self-care (01) ==
LOC: NCHCN 16:49
PROVIDERS: PCP Family Medicine; Visit Provider Family Medicine
DX: E11.9 Type 2 diabetes mellitus without complications (principal); R25.2 Cramp and spasm
CPT/HCPCS: 80048; 83036; 83735

== ENCOUNTER 2024-01-08 14:11 | Outpatient (REF) | payer MEDICARE, SELFPAY | END 2024-01-08 14:12 | disposition home or self-care (01) | LOC: NCHCN 14:11 | PROVIDERS: PCP Family Medicine; Visit Provider Family Medicine | DX: R30.0 Dysuria (principal); B96.89 Other specified bacterial agents as the cause of diseases classified elsewhere | CPT/HCPCS: 87086 ==

== ENCOUNTER 2024-02-28 12:08 | Outpatient (REF) | payer MEDICARE, SELFPAY ==
[2024-02-28 14:12] LABS: Bilirubin Negative (Negative); Blood Negative (Negative); Clarity Clear (Clear); Glucose Negative (Negative); Ketones Trace mg/dL (Negative); Leukocyte Esterase Moderate (Negative); Nitrite Negative (Negative); Urobilinogen 0.2 mg/dL (Up to 0.2); pH 5.5 (5-8)
[2024-02-28 14:28] LABS: Bacteria Rare HPF (Negative); Crystals Negative HPF (Negative); Epithelial Cells Rare HPF (Negative); Mucus Negative (Negative); Other Cells Few Renal (Negative); RBC Negative HPF (0-2); WBC 20-50 HPF (0-5)
[2024-02-28 14:29] LABS: C & S Indicated? Yes
== END 2024-02-28 12:09 | disposition home or self-care (01) ==
LOC: NCHCN 12:08
PROVIDERS: PCP Family Medicine; Visit Provider Family Medicine
DX: N30.10 Interstitial cystitis (chronic) without hematuria (principal); R82.998 Other abnormal findings in urine; B96.1 Klebsiella pneumoniae [K. pneumoniae] as the cause of diseases classified elsewhere
CPT/HCPCS: 87077; 81003; 81015; 87086; 87186

== ENCOUNTER 2024-03-22 23:21 | Outpatient (REF) | payer MEDICARE, SELFPAY ==
[2024-03-22 21:45] LABS: ALT 25 U/L (14-59); AST 18 U/L (15-37); Albumin 3.9 g/dL (3.4-5.0); Alkaline Phosphatase 61 U/L (46-116); Anion Gap 8.8 mmol/L (3-11); BUN 19 mg/dL (7-18); Bilirubin, Total 0.69 mg/dL (0.2-1.0); CO2 28.2 mmol/L (21.0-32.0); CREATININE 0.9 mg/dL (0.55-1.02); Calcium 9.3 mg/dL (8.5-10.1); Chloride 107 mmol/L (98-107); Estimated GFR 65.44 (mL/min/1.73m2); Glucose 185 mg/dL (74-106); NT-proBNP 338 pg/mL (<300); Potassium 3.8 mmol/L (3.5-5.1); Sodium 144 mmol/L (136-145); Total Protein 6.7 g/dL (6.4-8.2)
== END 2024-03-22 23:22 | disposition home or self-care (01) ==
LOC: NCHCN 23:21
PROVIDERS: PCP Family Medicine; Visit Provider Nurse Practitioner Family
DX: R60.0 Localized edema (principal)
CPT/HCPCS: 80053; 83880

== ENCOUNTER 2024-10-15 15:18 | Outpatient (REF) | payer MEDICARE, SELFPAY ==
[2024-10-15 14:37] LABS: Abs Immature Grans 0.03 10^3/uL (0.0-0.06); Absolute Basophil Count 0.04 10^3/uL (0.0-0.2); Absolute Eosinophil Count 0.21 10^3/uL (0.0-0.7); Absolute Lymphocyte Count 2.49 10^3/uL (1.2-3.4); Absolute Monocyte Count 0.46 10^3/uL (0.1-0.8); Absolute Neutrophil Count 4.44 10^3/uL (1.2-6.7); Basophils % 0.5 %; Eosinophils % 2.7 %; HCT 42.7 % (36.0-46.0); Immature Grans % 0.4 %; Lymphocytes % 32.5 %; MCH 31.1 pg (27.0-33.0); MCHC 35.1 % (32.0-36.0); MCV 89 fL (80-95); MPV 9.8 fL (8.0-11.0); Neutrophils % 57.9 %; Platelet Count 215 10^3/uL (130-400); RBC 4.82 10^6/uL (3.93-5.22); RDW 12.4 % (11.7-14.6); RDW-SD 40.3 fL; WBC 7.67 10^3/uL (4.4-10.8)
[2024-10-15 14:55] LABS: ALT 34 U/L (14-59); AST 18 U/L (15-37); Alkaline Phosphatase 73 U/L (46-116); Anion Gap 7.1 mmol/L (3-11); BUN 16 mg/dL (7-18); Bilirubin, Total 0.84 mg/dL (0.2-1.0); CO2 29.9 mmol/L (21.0-32.0); Calcium 9.7 mg/dL (8.5-10.1); Chloride 105 mmol/L (98-107); Estimated GFR 57.31 (mL/min/1.73m2); Glucose 198 mg/dL (74-106); Potassium 4.4 mmol/L (3.5-5.1); Sodium 142 mmol/L (136-145); Total Protein 6.9 g/dL (6.4-8.2)
[2024-10-15 15:05] LABS: Hemoglobin A1C 7.7 % (<5.7)
== END 2024-10-15 15:19 | disposition home or self-care (01) ==
LOC: NCHCN 15:18
PROVIDERS: PCP Family Medicine; Visit Provider Family Medicine
DX: E11.9 Type 2 diabetes mellitus without complications (principal); R10.9 Unspecified abdominal pain
CPT/HCPCS: 80053; 83036; 85025

== ENCOUNTER 2024-10-21 02:01 | Outpatient (CLI) | payer MEDICARE, SELFPAY ==
--- NOTE | 2024-10-21 | DI.CT_ITS ---
Exam(s) CT ABDOMEN PELVIS W EXAM: CT ABDOMEN PELVIS W CLINICAL HISTORY: Abdominal pain, unspecified-R10.9; diffuse pain, cramping, abnl stools. TECHNIQUE: Imaging Protocol: Axial computed tomography images with coronal and sagittal reformatted images were created and reviewed CONTRAST MATERIAL: Intravenous: Omnipaque 350 Contrast volume:75 ml Oral: yes COMPARISON: CT CT ABDOMEN PELVIS WO from 08/16/2022 FINDINGS: ABDOMEN and PELVIS: Lung Bases: No acute findings. Liver: Normal density. Stable liver cyst. No suspicious mass. Gallbladder and biliary tract: Cholecystectomy. No biliary dilation. Pancreas: Normal density. No abnormal calcifications or inflammatory process. No evidence of mass. Spleen: Normal. Kidneys: Normal size, contour and axis. Bilateral renal cysts. Small nonobstructing stone near the upper pole of the left kidney. No obstructive uropathy. No suspicious masses seen. Adrenal glands: No masses seen. Vasculature: Abdominal aorta non-dilated. Soft tissues: Unremarkable. Bladder: No gross wall thickening. No calculi.No focal mass. Bowel: No obstruction. No bowel wall thickening.Sigmoid diverticulosis. No evidence of diverticuli tis. Peritoneal cavity: No ascites. No focal collection. No mesenteric inflammatory response. No free air . Bones: Degenerative changes in the lumbar spine and mild scoliosis. Reproductive organs: Multiple uterine fibroids. Lymph nodes: No pathologically enlarged lymph nodes. IMPRESSION:: No acute abnormality in the abdomen or pelvis. Sigmoid diverticulosis. No evidence of diverticulitis. Uterine fibroids. RADIATION DOSE DELIVERED: Total DLP DATA REPOSITORY: All CT scans at this facility are submitted to the National Radiology Data Registry (NRDR) Dose Index Registry (DIR) with the [employer] (ACR). RADIATION OPTIMIZATION: All CT scans at this facility use at least one of these dose optimization te chniques: automated exposure control; mA and/or kV adjustment per patient size (includes targeted exa ms where dose is matched to clinical indication); or iterative reconstruction.
[2024-10-21] MEDS: Omnipaque 350 MG/ML 100 ML BTL IJ (14:32)
[2024-10-21] MEDS: Normal Saline - Diluent 50 ML VIAL IJ (14:33)
[2024-10-21] MEDS: Barium Sulfate 2% W/V-Creamy Vanilla Smoothie 450 ML BTL PO (15:09)
== END 2024-10-21 02:21 ==
LOC: DI 02:01
PROVIDERS: PCP Family Medicine; Visit Provider Family Medicine
DX: K57.30 Diverticulosis of large intestine without perforation or abscess without bleeding (principal)
CPT/HCPCS: 74177; J3490

== ENCOUNTER 2024-10-21 12:20 | Outpatient (REF) | payer MEDICARE, SELFPAY ==
[2024-10-21 17:11] LABS: C Diff PCR Negative (Negative)
[2024-10-24 23:30] LABS: Calprotectin <50.0 mcg/g
== END 2024-10-21 12:21 | disposition home or self-care (01) ==
LOC: NCHCN 12:20
PROVIDERS: PCP Family Medicine; Visit Provider Family Medicine
DX: R19.7 Diarrhea, unspecified (principal)
CPT/HCPCS: 87493; 83993; 87177

== ENCOUNTER → 2024-10-28 09:50 | Outpatient (BNVA) | payer MEDICARE, SELFPAY | PROVIDERS: PCP Family Medicine; Referring Provider Family Medicine; Visit Provider Podiatrist | DX: B35.3 Tinea pedis (principal); I87.2 Venous insufficiency (chronic) (peripheral); E11.9 Type 2 diabetes mellitus without complications; L60.2 Onychogryphosis; I73.89 Other specified peripheral vascular diseases; R25.2 Cramp and spasm; L65.9 Nonscarring hair loss, unspecified; R25.1 Tremor, unspecified; R09.89 Other specified symptoms and signs involving the circulatory and respiratory systems | CPT/HCPCS: 11719; 99214 ==

== ENCOUNTER 2024-10-31 13:18 | Outpatient (REF) | payer MEDICARE, SELFPAY ==
[2024-11-01 11:49] LABS: Campylobacter PCR Negative (Negative); Salmonella PCR Negative (Negative); Shiga Toxin PCR Negative (Negative); Shigella/Enteroinvasive Ecoli Negative (Negative)
== END 2024-10-31 13:19 | disposition home or self-care (01) ==
LOC: NCHCN 13:18
PROVIDERS: PCP Family Medicine; Visit Provider Family Medicine
DX: R19.7 Diarrhea, unspecified (principal)
CPT/HCPCS: 87505

== ENCOUNTER 2025-01-06 00:06 | Outpatient (CLI) | payer MEDICARE, SELFPAY ==
--- NOTE | 2025-01-06 | DI.MAMMO_ITS ---
Exam(s) MAMMO SCREENING EXAM: MAMMO SCREENING CLINICAL HISTORY: Z12.31 Screening TECHNIQUE: Mammograms were interpreted according to the usual protocol including computer analysis w [employer] CAD system, tomosynthesis and C-view imaging. COMPARISON: 2014 through 2022 FINDINGS: The breasts are composed of heterogeneously dense fibroglandular densities, Breast Density category C . No suspicious masses or suspicious microcalcifications are seen. No skin thickening or abnormal axillary lymph nodes are seen. There has been no significant change from prior exams. IMPRESSION: BI-RADS Category 1, Negative mammogram. Yearly screening mammography is recommended. Breast Density Category C, heterogeneously Dense. The mammogram demonstrates the patient's breast tissue is dense. Dense breast tissue is very common a nd is not abnormal but dense breast tissue can make it harder to find cancer on a mammogram. Also, de nse breast tissue may increase breast cancer risk. This information about the result of the mammogram report was provided to the patient to raise their awareness. Use this report when you speak with the patient about their risks for breast cancer, which includes their family history. At that time, you may recommend additional screening tests (Ultrasound or MRI) as they might be useful based on their r isk. A negative radiographic report should not delay biopsy if a dominant or clinically suspicious mass is present. Up to ten percent of cancers are not identified on mammography. A negative report may reinforce clinical impression. Adenosis and dense breasts may obscure an underlying neoplasm. False positive reports average 6 to 10%.
== END 2025-01-06 00:26 ==
LOC: DI 00:07
PROVIDERS: PCP Family Medicine; Visit Provider Family Medicine
DX: Z12.31 Encounter for screening mammogram for malignant neoplasm of breast (principal); R92.333 Mammographic heterogeneous density, bilateral breasts
CPT/HCPCS: 77063; 77067

== ENCOUNTER 2025-03-04 16:32 | Outpatient (REF) | payer MEDICARE, SELFPAY | END 2025-03-04 16:33 | disposition home or self-care (01) | LOC: NCHCN 16:32 | PROVIDERS: PCP Family Medicine; Visit Provider Family Medicine | DX: R39.9 Unspecified symptoms and signs involving the genitourinary system (principal) | CPT/HCPCS: 87077; 87086; 87186 ==

== ENCOUNTER 2025-06-09 15:40 | Outpatient (REF) | payer MEDICARE, SELFPAY ==
[2025-06-09 16:34] LABS: Calculated LDL 104 mg/dL (<100); Cholesterol 185 mg/dL (<200); HDL Cholesterol 50 mg/dL (>or=50); Triglyceride 155 mg/dL (<150)
[2025-06-09 18:12] LABS: COMMENT (LAB VIEW ONLY) 101.88 mg/dL; Microalb ug/mg Crea 21.4 ug/mg Cr
[2025-06-11 10:43] LABS: Lyme Ab w Rflx to Lyme Confirm Negative (Negative)
[2025-06-12 19:30] LABS: B. miyamotoi PCR Negative (Negative); Babesia divergens/MO-1 Negative (Negative); Ehrlichia muris eauclairensis Negative (Negative)
== END 2025-06-09 15:41 | disposition home or self-care (01) ==
LOC: NCHCN 15:40
PROVIDERS: PCP Family Medicine; Visit Provider Family Medicine
DX: R53.83 Other fatigue (principal); E78.5 Hyperlipidemia, unspecified
CPT/HCPCS: 80061; 87798; 82043; 82570; 86618

== ENCOUNTER → 2025-07-14 13:01 | Outpatient (BNVA) | payer MEDICARE, SELFPAY | PROVIDERS: PCP Family Medicine; Referring Provider Family Medicine; Visit Provider Podiatrist ==

== ENCOUNTER → 2025-09-01 00:52 | Outpatient (CLI) | payer MEDICARE, SELFPAY ==
--- NOTE | 2025-09-01 | DI.RAD_ITS ---
Exam(s) XR SACRUM COCCYX EXAM: XR SACRUM COCCYX CLINICAL HISTORY: COCCYDYNIA, M53.3 SACROCOCCYGEAL DISORDERS. TECHNIQUE: 2D digital imaging was performed. Three images were obtained. COMPARISON: CR BILATERAL HIPS ADULT from 11/17/[address] ABDOMEN PELVIS W from 10/21/2024 FINDINGS: BONES: No acute fracture is present. No bony destructive lesion is seen. JOINTS: No dislocation present. There are mild degenerative changes seen at the sacroiliac joints bilaterally. There is no ankylosis or erosion. There are degenerative changes seen in the lower lumbar spine characterized by disc space narrowing and facet arthropathy. SOFT TISSUE: Normal. IMPRESSION: Degenerative changes seen in the lower lumbar spine in the sacroiliac joints. DATA REPOSITORY: RADIATION DOSE DELIVERED:
== END ==
LOC: DI 00:52
PROVIDERS: PCP Family Medicine; Visit Provider Family Medicine
DX: M53.3 Sacrococcygeal disorders, not elsewhere classified (principal); M51.362 Other intervertebral disc degeneration, lumbar region with discogenic back pain and lower extremity pain
CPT/HCPCS: 72220